=== PATIENT | female | born 1935 | race Caucasian/White ===

== ENCOUNTER 2018-06-16 09:51 | Emergency (ER) | payer MEDICARE, OTHER ==
[2018-06-16 10:36] LABS: #Basophils 0.1 thou/uL (0.0-0.2); #Eosinphils 0.2 thou/uL (0.0-0.7); #Lymphocytes 2.2 thou/uL (1.20-3.40); #Monocytes 1.5 thou/uL (0.11-0.59); #Neutrophils 7.2 thou/uL (1.40-6.50); %Basophils 0.6 % (0.0-1.0); %Eosinophils 1.7 % (0.0-10.0); %Lymphocytes 19.7 % (21.0-51.0); %Monocytes 13.1 % (0.0-10.0); %Neutrophils 64.8 % (42.0-75.0); Hemoglobin 15.7 g/dL (12.0-16.0); Mean Corpuscular HGB CONC 33.1 g/dL (32.0-36.0); Mean Corpuscular Hemoglobin 30.2 pg (27.0-31.0); Mean Corpuscular Volume 91.2 fL (78.0-98.0); Mean Platelet Volume 7.9 fL (7.4-10.4); Platelet Count 378 thou/uL (130-400); Red Blood Cell (RBC) Count 5.21 mill/uL (4.20-5.40); White Blood Cell (WBC) Count 11.2 thou/uL (4.8-10.8)
--- NOTE | 2018-06-16 10:44 | RAD ---
SINGLE VIEW CHEST: Date: 06/16/18 COMPARISON: None. HISTORY: Fullness in the neck and irregular heartbeat since yesterday. FINDINGS: Single view of the chest shows an enlarged cardiomediastinal silhouette with atherosclerotic calcific ations in the aorta. There is no evidence of consolidation, mass, or pleural effusion. IMPRESSION: No evidence of acute cardiopulmonary disease. POS: [facility]
[2018-06-16 10:59] LABS: ALT (SGPT) 14 U/L (8-55); AST (SGOT) 20 U/L (5-34); Albumin 3.9 g/dL (3.4-4.8); Alkaline Phosphatase 111 U/L (40-150); Anion Gap 13 mmol/L (10-20); BUN (Urea Nitrogen) 20 mg/dL (9.8-20.1); Bilirubin, Total 0.4 mg/dL (0.2-1.2); CK (CPK) 40 U/L (29-168); Calc. Creatinine Clearance 0 mL/min (70-130); Calcium 10.4 mg/dL (7.8-10.44); Carbon Dioxide 28 mmol/L (23-31); Chloride 100 mmol/L (98-107); Estimated GFR-MDRD 54; Globulin 4.5 g/dL (2.4-3.5); Glucose 93 mg/dL (83-110); Potassium 4.5 mmol/L (3.5-5.1); Protein, Total 8.4 g/dL (6.0-8.3); Sodium 136 mmol/L (136-145)
--- NOTE | 2018-06-19 13:33 | EKG ---
Test Reason : CHEST PRESSURE Blood Pressure : / mmHG Vent. Rate : 108 BPM Atrial Rate : 100 BPM P-R Int : 000 ms QRS Dur : 074 ms QT Int : 338 ms P-R-T Axes : 000 015 043 degrees QTc Int : 452 ms Atrial fibrillation with rapid ventricular response Cannot rule out Anterior infarct , age undetermined Abnormal ECG Confirmed by AMPARO BRANDON, DELMAR ([id number]), news videotape editor BRITTANY YEE ([id number]) on 06/19/2018 1:32:53 PM Referred By: Confirmed By:DELMAR CHRISTENSEN MD
== END 2018-06-16 12:02 | disposition home or self-care (01) ==
LOC: ERS 09:51
DX: I48.91 Unspecified atrial fibrillation (principal); E03.9 Hypothyroidism, unspecified; Z79.82 Long term (current) use of aspirin; Z79.899 Other long term (current) drug therapy
CPT/HCPCS: 71045; 80053; 82550; 84484; 85025; 93005; 96360; 96361

== ENCOUNTER 2018-11-12 12:18 | Emergency (ER) | payer MEDICARE ==
[~2018-11-12 12:18] MED LIST: ISOVUE-370 76%-LOCM 1 ML ONE
[2018-11-12 12:42] LABS: #Basophils 0.1 thou/uL (0.0-0.2); #Eosinphils 0.4 thou/uL (0.0-0.7); #Lymphocytes 2.2 thou/uL (1.20-3.40); #Monocytes 0.9 thou/uL (0.11-0.59); %Basophils 0.8 % (0.0-1.0); %Eosinophils 3.8 % (0.0-10.0); %Lymphocytes 23.2 % (21.0-51.0); %Monocytes 9.7 % (0.0-10.0); %Neutrophils 62.4 % (42.0-75.0); Hemoglobin 14.2 g/dL (12.0-16.0); Mean Corpuscular HGB CONC 32.4 g/dL (32.0-36.0); Mean Corpuscular Hemoglobin 29.7 pg (27.0-31.0); Mean Corpuscular Volume 91.7 fL (78.0-98.0); Mean Platelet Volume 7.4 fL (7.4-10.4); Platelet Count 338 thou/uL (130-400); RBC Distribution Width 12.1 % (11.5-14.5); Red Blood Cell (RBC) Count 4.79 mill/uL (4.20-5.40); White Blood Cell (WBC) Count 9.7 thou/uL (4.8-10.8)
--- NOTE | 2018-11-12 12:59 | RAD ---
EXAM: Chest PA and lateral: HISTORY: Chest pain. Tachycardia. COMPARISON: 06/16/2018 FINDINGS: Heart: Cardiomegaly. Aorta: Atherosclerosis Pulmonary vessels: Normal. However, there appears to be a right hilar mass measuring 2.5 cm. Costophrenic angles: Costophrenic angles are clear. Lungs: No consolidation with air bronchograms Pneumothorax: No pneumothorax Osseous structures: No osseous abnormalities IMPRESSION: 1. Right hilar mass, incompletely evaluated. 2. Further evaluation with chest CT is recommended. CODE T
[2018-11-12 13:00] LABS: ALT (SGPT) 23 U/L (8-55); AST (SGOT) 26 U/L (5-34); Albumin 3.8 g/dL (3.4-4.8); Alkaline Phosphatase 106 U/L (40-150); Anion Gap 11 mmol/L (10-20); BUN (Urea Nitrogen) 14 mg/dL (9.8-20.1); Bilirubin, Total 0.4 mg/dL (0.2-1.2); CK (CPK) 40 U/L (29-168); Calc. Creatinine Clearance 0 mL/min (70-130); Calcium 10.3 mg/dL (7.8-10.44); Carbon Dioxide 31 mmol/L (23-31); Chloride 103 mmol/L (98-107); Estimated GFR-MDRD 65; Globulin 3.7 g/dL (2.4-3.5); Glucose 103 mg/dL (83-110); Potassium 4.5 mmol/L (3.5-5.1); Protein, Total 7.5 g/dL (6.0-8.3); Sodium 140 mmol/L (136-145)
--- NOTE | 2018-11-12 15:37 | CT ---
EXAM: CT Chest W Con PROVIDED CLINICAL HISTORY: Right hilar mass seen on chest x-ray. Chest pain. Heart palpitations. COMPARISON: Chest x-ray on 11/12/2018 FINDINGS: There are scattered areas of linear atelectasis and/or scarring within the lungs bilaterally. No disc rete pulmonary nodule, mass, or pleural effusion is seen The suggested hilar mass on recent chest x-ray is reflective of prominent right hilar vascular struct ures. No hilar mass is visualized. There is no evidence of lymphadenopathy. Vascular calcifications are seen in the thoracic aorta, but the thoracic aorta is normal in caliber w ithout evidence of an aortic dissection. The heart is in enlarged. Multilevel degenerative changes are seen in the spine. IMPRESSION: 1. No acute findings seen in the chest. 2. Mild cardiomegaly. 3. The questioned mass in the right hilar region on chest x-ray is related to right hilar vascular st ructures, and there is no evidence of a right hilar mass.
== END 2018-11-12 16:32 | disposition home or self-care (01) ==
LOC: ERS 12:18
DX: R00.2 Palpitations (principal); I49.9 Cardiac arrhythmia, unspecified; E03.9 Hypothyroidism, unspecified; Z79.899 Other long term (current) drug therapy; Z79.82 Long term (current) use of aspirin
CPT/HCPCS: 36415; 71046; 71260; 80053; 82550; 84484; 85025; 93005; Q9966

== ENCOUNTER 2019-06-07 18:07 | Inpatient (IN) | payer MEDICARE ==
[2019-06-07] MEDS ORDERED: Adenosine 6 MG/2 ML VIAL ONE (18:12)
--- NOTE | 2019-06-07 18:57 | RAD ---
Chest one view HISTORY: Chest pain. COMPARISON: 11/12/2018. FINDINGS: Cardiac silhouette is magnified and enlarged. Pulmonary vasculature now more engorged. Prom inence of the right hilum is similar in appearance to the prior study. No evidence of pneumothorax. Defibrillator patch overlies the right chest. IMPRESSION: Pulmonary vascular congestion.
[2019-06-07] MEDS ORDERED: Diltiazem 125 MG/25 ML ONE ×2 (19:11→19:15)
[2019-06-07 19:15] LABS: #Basophils 0.1 thou/uL (0.0-0.2); #Eosinphils 0.5 thou/uL (0.0-0.7); #Lymphocytes 2.6 thou/uL (1.20-3.40); #Monocytes 1.6 thou/uL (0.11-0.59); %Basophils 0.7 % (0.0-1.0); %Eosinophils 3.1 % (0.0-10.0); %Lymphocytes 17.6 % (21.0-51.0); %Neutrophils 67.7 % (42.0-75.0); Hemoglobin 10.8 g/dL (12.0-16.0); Mean Corpuscular HGB CONC 32.3 g/dL (32.0-36.0); Mean Corpuscular Hemoglobin 29.3 pg (27.0-31.0); Mean Corpuscular Volume 90.5 fL (78.0-98.0); Mean Platelet Volume 6.1 fL (7.4-10.4); Platelet Count 672 thou/uL (130-400); RBC Distribution Width 13.1 % (11.5-14.5); Red Blood Cell (RBC) Count 3.68 mill/uL (4.20-5.40); White Blood Cell (WBC) Count 14.8 thou/uL (4.8-10.8)
[2019-06-07 19:37] LABS: Bilirubin Negative (Negative); Blood, Urine Negative (Negative); Clarity Clear (Clear); Glucose, Urine (Dipstick) Normal (Negative); Leukocyte 25 Leu/uL (Negative); Nitrite Negative (Negative); Protein, Urine (Dipstick) Negative (Neg-Trace); RBC/HPF 0-3 HPF (0-3); Squamous Epithelial None Seen HPF (0-3); Urobilinogen Normal mg/dL (Less than 2)
[2019-06-07 19:38] LABS: Bacteria/HPF 1+ HPF (None Seen)
[2019-06-07 19:41] LABS: ALT (SGPT) 35 U/L (8-55); AST (SGOT) 27 U/L (5-34); Acetaminophen Less than 6.0 mcg/mL (10.0-30.0); Albumin 3.1 g/dL (3.4-4.8); Alcohol Less than 10 mg/dL (Less than 10); Alkaline Phosphatase 167 U/L (40-110); Anion Gap 12 mmol/L (10-20); BUN (Urea Nitrogen) 16 mg/dL (9.8-20.1); Bilirubin, Total 0.2 mg/dL (0.2-1.2); CK (CPK) 16 U/L (29-168); Calc. Creatinine Clearance 0 mL/min (70-130); Calcium 9.4 mg/dL (7.8-10.44); Carbon Dioxide 24 mmol/L (23-31); Chloride 104 mmol/L (98-107); Estimated GFR-MDRD 73; Globulin 4.5 g/dL (2.4-3.5); Glucose 104 mg/dL (83-110); Potassium 3.9 mmol/L (3.5-5.1); Protein, Total 7.6 g/dL (6.0-8.3); Salicylate Less than 8.0 mg/dL (15.0-30.0); Sodium 136 mmol/L (136-145)
[2019-06-07 19:47] LABS: Amphetamine Not Detected (NotDetected); Barbiturates Screen Not Detected (NotDetected); Benzodiazepine Screen Not Detected (NotDetected); Cocaine Metabolite Screen Not Detected (NotDetected); Medtox Control Line Valid? VALID (VALID); Medtox Reader # READER 4; Methadone Not Detected (NotDetected); Methamphetamine Not Detected (NotDetected); Opiate Screen Not Detected (NotDetected); Oxycodone Screen Not Detected (NotDetected); Phencyclidine (PCP) Not Detected (NotDetected); THC/Cannabinoid Screen Not Detected (NotDetected); Tricyclic Screen Not Detected (NotDetected)
[2019-06-07] MEDS ORDERED: Morphine 2 MG/ML SYRINGE SLOW IVP PRN (22:09)
[2019-06-07] MEDS ORDERED: Ondansetron PF 4 MG/2 ML Vial IVP PRN (22:09)
[2019-06-07] MEDS ORDERED: Promethazine HCl 12.5 MG in Sodium Chloride 0.9% 50 ML IVPB PRN (22:09)
[2019-06-07] MEDS ORDERED: hydrALAZINE 20 MG/ML VIAL SLOW IVP PRN (22:09)
[2019-06-07] MEDS ORDERED: cloNIDine 0.1 MG TAB PO PRN (22:09)
[2019-06-07] MEDS ORDERED: HYDROcodone/Acetaminophen 5/325 mg Tablet PO PRN (22:11)
[2019-06-07] MEDS ORDERED: Bisacodyl 10 MG SUPP PR PRN (22:11)
[2019-06-07] MEDS ORDERED: Acetaminophen 325 MG TAB PO PRN (22:11)
[2019-06-07] MEDS ORDERED: Bisacodyl 5 MG TAB PO PRN (22:11)
--- NOTE | 2019-06-07 22:14 | PDOC.HHP ---
Hospitalist HPI - History of Present Illness palpitations History of Present Illness: patient is an 83 year old female with PMH HTN, hypothyroidism, SVT/afib who presents for palpitations, lasted 2 minutes and resolved on own. went to ED, here rate was observed to be about 205, ED Dr tried vagal maneuvers which didnt solve problem. She recieved cardizem bolus and gtt and recommended for admission. rate recovered to 130-150 on my arrival with resolution of symptoms PAtient takes metoprolol at home, patient believes that this is all due to PCP increasing synthroid from 125 to 150 3 weeks ago, although TSH and free T4 in ED wnl, she has been taking the 125 anyway for last few days despite advice to start the 150mcg dose. She reports HR normally controlled on metoprolol. patient reportedly admitted this month for fall with concussion, was diagnosed with UTI and completing course of keflex Hospitalist ROS - Review of Systems Constitutional: denies: fever, chills Eyes: denies: pain, vision change ENT: denies: nose discharge, throat pain Respiratory: denies: cough, shortness of breath Cardiovascular: reports: palpitations. denies: chest pain Gastrointestinal: denies: nausea, vomiting Genitourinary: denies: dysuria, frequency Musculoskeletal: denies: neck pain, shoulder pain Neurological: denies: weakness, numbness All other systems reviewed; all pertinent +/- noted in HPI/Subj Hospitalist History - Past Medical History Other Medical History: HTN, afib, SVT, hypothyroidism - Past Surgical History Past Surgical History: reports: no pertinent history Other Surgical History: reviewed - Social History Alcohol: reports: None Drugs: reports: none - Exam General Appearance: NAD, awake alert Eye: PERRL, anicteric sclera ENT: normocephalic atraumatic, no oropharyngeal lesions, moist mucosa Neck: supple, symmetric, no JVD, no thyromegaly, no lymphadenopathy, no carotid bruit Heart: RRR, no murmur, no gallops, no rubs, normal peripheral pulses Respiratory: CTAB, no wheezes, no rales, no ronchi, normal chest expansion, no tachypnea, normal percussion Gastrointestinal: soft, non-tender, non-distended, normal bowel sounds, no palpable masses, no hepatomegaly, no splenomegaly, no bruit Extremities: no cyanosis, no clubbing, no edema Skin: normal turgor, no lesions, no rashes Neurological: cranial nerve grossly intact, normal sensation to touch, no weakness, no focal deficits, no new deficit Musculoskeletal: normal tone, normal strength, no muscle wasting Hospitalist Results - Labs Result Diagrams: 06/08/19 04:17 06/08/19 04:17 Lab results: WBC 14.8 thou/uL (4.8-10.8) H 06/07/19 18:53 Hgb 10.8 g/dL (12.0-16.0) L 06/07/19 18:53 Hct 33.3 % (36.0-47.0) L 06/07/19 18:53 MCV 90.5 fL (78.0-98.0) 06/07/19 18:53 Plt Count 672 thou/uL (130-400) H 06/07/19 18:53 Neutrophils % 67.7 % (42.0-75.0) 06/07/19 18:53 Sodium 136 mmol/L (136-145) 06/07/19 18:53 Potassium 3.9 mmol/L (3.5-5.1) 06/07/19 18:53 Chloride 104 mmol/L (98-107) 06/07/19 18:53 Carbon Dioxide 24 mmol/L (23-31) 06/07/19 18:53 BUN 16 mg/dL (9.8-20.1) 06/07/19 18:53 Creatinine 0.76 mg/dL (0.6-1.1) 06/07/19 18:53 Glucose 104 mg/dL (83-110) 06/07/19 18:53 Calcium 9.4 mg/dL (7.8-10.44) 06/07/19 18:53 Total Bilirubin 0.2 mg/dL (0.2-1.2) 06/07/19 18:53 AST 27 U/L (5-34) 06/07/19 18:53 ALT 35 U/L (8-55) 06/07/19 18:53 Alkaline Phosphatase 167 U/L (40-110) H 06/07/19 18:53 Creatine Kinase 16 U/L (29-168) L 06/07/19 18:53 Troponin I 0.017 ng/mL (< 0.028) 06/07/19 18:37 B-Natriuretic Peptide 169.0 pg/mL (0-100) H 06/07/19 18:53 Serum Total Protein 7.6 g/dL (6.0-8.3) 06/07/19 18:53 Albumin 3.1 g/dL (3.4-4.8) L 06/07/19 18:53 Urine Ketones Negative mg/dL (Negative) 06/07/19 19:22 Urine Blood Negative (Negative) 06/07/19 19:22 Urine Nitrite Negative (Negative) 06/07/19 19:22 Ur Leukocyte Esterase 25 Faviola/uL (Negative) 06/07/19 19:22 Urine RBC 0-3 HPF (0-3) 06/07/19 19:22 Urine WBC 4-6 HPF (0-3) A 06/07/19 19:22 Ur Squamous Epith Cells None Seen HPF (0-3) 06/07/19 19:22 Urine Bacteria 1+ HPF (None Seen) A 06/07/19 19:22 Hospitalist H&P A/P - Plan Plan: patient is an 83 year old female with PMH HTN, hypothyroidism, SVT/afib who presents for: # symptomatic tachyarrhythmia - SVT possibly, admit to IMCU - consult cardiology, pulmonology, PT, OT - continue amiodarone, resume home meds when med rec complete
[2019-06-07] MEDS ORDERED: Furosemide 20 MG/2 ML VIAL SLOW IVP SCH (22:15)
[2019-06-07] MEDS ORDERED: Diltiazem 125 MG in Sodium Chloride 0.9% 100 ML IVPB SCH (22:15)
[2019-06-07 23:22] VITALS: BMI 25.4
[2019-06-07 23:32] LABS: Troponin I Less than 0.010 ng/mL (< 0.028)
[2019-06-08 01:40] LABS: Troponin I Less than 0.010 ng/mL (< 0.028)
[2019-06-08 04:45] LABS: #Basophils 0.1 thou/uL (0.0-0.2); #Eosinphils 0.3 thou/uL (0.0-0.7); #Lymphocytes 2.2 thou/uL (1.20-3.40); #Monocytes 1.3 thou/uL (0.11-0.59); #Neutrophils 10.3 thou/uL (1.40-6.50); %Basophils 0.5 % (0.0-1.0); %Eosinophils 2.2 % (0.0-10.0); %Lymphocytes 15.6 % (21.0-51.0); %Monocytes 9.2 % (0.0-10.0); %Neutrophils 72.6 % (42.0-75.0); Hemoglobin 10.2 g/dL (12.0-16.0); Mean Corpuscular HGB CONC 32.6 g/dL (32.0-36.0); Mean Corpuscular Hemoglobin 29.1 pg (27.0-31.0); Mean Corpuscular Volume 89.2 fL (78.0-98.0); Mean Platelet Volume 6.2 fL (7.4-10.4); Platelet Count 596 thou/uL (130-400); RBC Distribution Width 13.1 % (11.5-14.5); White Blood Cell (WBC) Count 14.2 thou/uL (4.8-10.8)
[2019-06-08 05:12] LABS: Anion Gap 11 mmol/L (10-20); BUN (Urea Nitrogen) 12 mg/dL (9.8-20.1); Calc. Creatinine Clearance 68 mL/min (70-130); Calcium 9.3 mg/dL (7.8-10.44); Carbon Dioxide 27 mmol/L (23-31); Chloride 104 mmol/L (98-107); Estimated GFR-MDRD 80; Glucose 100 mg/dL (83-110); Sodium 138 mmol/L (136-145)
[2019-06-08 05:31] LABS: Free T4 (Free Thyroxine) 0.99 ng/dL (0.70-1.48); Thyroid Stimulating Hormone 1.9464 uIU/mL (0.35-4.94)
[2019-06-08] MEDS: Levothyroxine Sodium 125 MCG TAB PO SCH (05:41)
[2019-06-08] MEDS ORDERED: Furosemide 20 MG/2 ML VIAL SLOW IVP SCH (06:00)
[2019-06-08] MEDS ORDERED: Metoprolol Tartrate 5 MG/5 ML VIAL ONE (08:31)
[2019-06-08] MEDS ORDERED: Amiodarone 150 MG, Admixture Fee 1 EACH in Dextrose 5% in Water 100 ML IVPB SCH (08:45)
[2019-06-08] MEDS ORDERED: Metoprolol Tartrate 5 MG/5 ML VIAL IVP SCH (08:45)
[2019-06-08] MEDS ORDERED: Enoxaparin Sodium 40 MG/0.4 ML SYRINGE SC SCH ×2 (09:00)
--- NOTE | 2019-06-08 09:25 | CON ---
DATE OF CONSULTATION: 06/08/2019 REASON FOR CONSULTATION: Severe tachycardia. HISTORY OF PRESENT ILLNESS: Ms. Patel is an 83-year-old woman. She has history of paroxysmal atrial fibrillation. Recently, she has been having intermittent sensation of feeling like she is going to faint and a sensation of pressure in her chest. These come and go. They are not exertional. She does have a history of atrial fibrillation. While she has been here, she has had atrial arrhythmias. Fibrillation rate in the high 180s and some narrow complex tachycardia in the rate of 200. When I was talking to her, she had a feeling she was going to faint. She was in atrial fibrillation with rate of 180, it made her chest feel tight, now the rate is down to 100. She is feeling better. PAST HISTORY: Also, 1. Hypothyroidism, on thyroid repletion. 2. Mild hypertension. SOCIAL HISTORY: No alcohol or tobacco. REVIEW OF SYSTEMS: CONSTITUTIONAL: No significant weight gain or loss. VISION: No changes. HEARING: No changes. PULMONARY: No cough or wheezing. GASTROINTESTINAL: No nausea, vomiting, or diarrhea. SKIN: No rashes. NEUROLOGIC: No unilateral weakness or numbness. PSYCHIATRIC: No unusual depression or anxiety. HEMATOLOGIC: No unusual bruising. GENITOURINARY: No burning with urination. PHYSICAL EXAMINATION: GENERAL: This is a pleasant elderly woman. She feels better when her heart rate control as outlined above. When her heart rate is very fast, she feels like she is going to faint and feels pressure in her chest. HEENT: Eyes, sclerae are nonicteric. Mouth; mucous membranes are moist. NECK: Supple. No lymphadenopathy. LUNGS: Clear. CARDIAC: She is very tachycardic and irregular. ABDOMEN: Soft and nontender. EXTREMITIES: Warm and dry. No clubbing. No cyanosis or edema. DIAGNOSTIC DATA: EKG, intermittent sinus tachycardia, some atrial fibrillation with a rapid rate, some narrow complex tachycardia, rate of 200. It could be AFib that looks more regular when it is very rapid, also could be atrial flutter or SVT. ASSESSMENT: 1. Paroxysmal atrial fibrillation with a very rapid rate. 2. Sensation of near fainting associated with these tachycardia. 3. Also, a narrow complex more regular tachycardia, which could be atrial flutter, it could also be atrial fibrillation, looks more regular as it gets more rapid. She does not tolerate these very rapid rates well at all. PLAN: 1. Start intravenous amiodarone. 2. Continue beta-blockers. 3. Thyroid tests are normal. 4. Anticoagulation. She was previously on Eliquis. We will change to Lovenox here. 5. Depending on the rhythm, may need ablation, especially if she has atrial flutter. We will see how she responds to the amiodarone. Also have electrophysiologic consultation during this admission. Job ID: [id number]
[2019-06-08] MEDS: Enoxaparin Sodium 80 MG/0.8 ML SYRINGE SC SCH ×2 (09:34→19:56)
[2019-06-08] MEDS: Senokot S 8.6-50 MG TAB PO SCH ×2 (09:36→19:57)
[2019-06-08] MEDS: Metoprolol Tartrate 50 MG TAB PO SCH ×2 (09:36→19:57)
[2019-06-08] MEDS: Amiodarone 450 MG in Dextrose 5% in Water 250 ML IVPB SCH ×2 (10:08→19:53)
--- NOTE | 2019-06-08 18:37 | CON ---
DATE OF CONSULTATION: 06/08/2019 SERVICE: Pulmonary Medicine. REASON FOR CONSULTATION: [facility] patient. HISTORY OF PRESENT ILLNESS: The patient is an 83-year-old white female with past medical history significant for essentially nothing. For the past month and a half, she has had intermittent episodes of palpitations, and shortness of breath. She also has presyncopal symptoms. She has been evaluated by her primary care physician and emergency physicians. Ultimately, she had an episode of syncope. She was brought to the Emergency Department and once again found to be in a tachyarrhythmia. She was placed on rate control medication. Since then, she has not had any shortness of breath, or episodes of tachycardia. She did have one run that was quite elevated, but asymptomatic. She denies any current fevers, chills, nausea , or vomiting and is otherwise in her usual state of health. She indicates that she has been having intermittent shortness of breath. It has been slowly progressive ever since a week after her thyroid medication was increased. PAST MEDICAL HISTORY: 1. Hypertension. 2. Atrial fibrillation, paroxysmal. 3. Hypothyroidism. 4. SVT. PAST SURGICAL HISTORY: None. ALLERGIES: NO KNOWN DRUG ALLERGIES. MEDICATIONS: List of the patient's inpatient medications were reviewed. No specific updates were made at this time. FAMILY HISTORY: Noncontributory. SOCIAL HISTORY: Negative for alcohol, tobacco, or illicit drug use currently. She has no exposure to chemicals, dust, asbestos, or tuberculosis. She notes that she is a lifelong nonsmoker. REVIEW OF SYSTEMS: General, head, ears, eyes, nose, throat, cardiovascular, respiratory, GI, , musculoskeletal, neurologic, and skin are negative except as mentioned in the HPI PHYSICAL EXAMINATION: VITAL SIGNS: Afebrile, pulse 82, blood pressure 124/67, respirations 16, and saturation 96%, currently on room air. GENERAL: The patient is awake and alert, in no apparent distress. LUNGS: Wonderful air entry. Minimal dependent crackles are noted. No prolonged expiratory phase or wheezing is appreciated. HEART: Normal rate. Regular. ABDOMEN: Soft, nontender, and nondistended. Bowel sounds are positive. MUSCULOSKELETAL: No cyanosis or clubbing. No pitting in the bilateral lower extremities. NEUROLOGIC: Grossly nonfocal. LABORATORY DATA: WBC 14.2, hemoglobin 10.2, and platelets 596,000. Basic metabolic profile is unremarkable. Troponin negative x3 and BNP 169. TSH 1.6. T4 falls within the normal limits. Liver function studies are essentially unremarkable except for a slightly elevated alkaline phosphatase of 167. Urinalysis is unremarkable. Urine drug screen is negative. IMAGIN. Chest x-ray demonstrates no acute cardiopulmonary abnormality. 2. Minimal pulmonary vascular congestion/cephalization is present. I do not see any obvious infiltrates, or effusions present. Cardiac silhouette is quite enlarged. The carinal angle is generous, consistent with left atrial dilation. ASSESSMENT: 1. Atrial fibrillation with rapid ventricular response. 2. Syncope/presyncope. 3. Possible atrial flutter versus supraventricular tachycardia. DISCUSSION AND PLAN: EP consultation is currently pending. We will keep the patient in the IMCU for 1 night. If she is doing well, she can be considered for transition to the telemetry unit in the morning. Pulmonary will continue to follow in this location. At this point, she is stable from respiratory standpoint. A single dose of Lasix will be considered. 70 minutes have been devoted to this patient in various activities. I personally reviewed all imaging studies and laboratory data noted within this document. For fifty percent of this time, I was interacting with the patient at the bedside or coordinating care with the care team. For the remainder of the time I was immediately available to the patient in the hospital unit. Job ID: [id number] [facility]ITAL[facility]
[2019-06-09 04:05] LABS: #Basophils 0.1 thou/uL (0.0-0.2); #Eosinphils 0.5 thou/uL (0.0-0.7); #Lymphocytes 2.6 thou/uL (1.20-3.40); #Monocytes 1.7 thou/uL (0.11-0.59); %Basophils 0.8 % (0.0-1.0); %Eosinophils 3.2 % (0.0-10.0); %Lymphocytes 17.3 % (21.0-51.0); %Monocytes 11.3 % (0.0-10.0); %Neutrophils 67.5 % (42.0-75.0); Hemoglobin 10.8 g/dL (12.0-16.0); Mean Corpuscular HGB CONC 32.8 g/dL (32.0-36.0); Mean Corpuscular Hemoglobin 29.3 pg (27.0-31.0); Mean Corpuscular Volume 89.2 fL (78.0-98.0); Mean Platelet Volume 6.5 fL (7.4-10.4); Platelet Count 605 thou/uL (130-400); RBC Distribution Width 13.2 % (11.5-14.5); Red Blood Cell (RBC) Count 3.68 mill/uL (4.20-5.40); White Blood Cell (WBC) Count 14.8 thou/uL (4.8-10.8)
[2019-06-09 04:23] LABS: Anion Gap 11 mmol/L (10-20); BUN (Urea Nitrogen) 11 mg/dL (9.8-20.1); Calc. Creatinine Clearance 61 mL/min (70-130); Calcium 9.7 mg/dL (7.8-10.44); Carbon Dioxide 27 mmol/L (23-31); Chloride 101 mmol/L (98-107); Estimated GFR-MDRD 71; Glucose 109 mg/dL (83-110); Potassium 3.9 mmol/L (3.5-5.1); Sodium 135 mmol/L (136-145)
[2019-06-09] MEDS: Levothyroxine Sodium 125 MCG TAB PO SCH (06:27)
--- NOTE | 2019-06-09 09:23 | PRG ---
DATE OF SERVICE: 06/09/2019 SUBJECTIVE: Ms. Patel feels much better today. The atrial fibrillation has resolved. She is not having any further tachycardia. She tolerated the intravenous amiodarone very well. No chest pain or pressure. OBJECTIVE: VITAL SIGNS: Blood pressure 155/74, pulse 80 and it is sinus with occasional PAC. LUNGS: Clear. CARDIAC: Normal S1, normal S2. ABDOMEN: Soft, nontender. ASSESSMENT: 1. Atrial arrhythmias, dramatically improved. 2. Mild hypertension. 3. Narrow complex tachycardia, looks like supraventricular tachycardia at a rate of 200, but could have been atrial fibrillation going very rapidly. PLAN: 1. Continue amiodarone, change to oral. 2. Give some extra potassium. 3. Okay to go to telemetry. Job ID: [id number]
[2019-06-09] MEDS: Metoprolol Tartrate 50 MG TAB PO SCH ×2 (10:23→20:25)
[2019-06-09] MEDS: Senokot S 8.6-50 MG TAB PO SCH ×2 (10:24→20:26)
[2019-06-09] MEDS: Amiodarone 200 MG TAB PO SCH ×3 (10:25→20:25)
[2019-06-09] MEDS: Enoxaparin Sodium 80 MG/0.8 ML SYRINGE SC SCH ×2 (10:26→20:26)
[2019-06-09] MEDS ORDERED: Potassium Chloride 20 MEQ TAB PO SCH (12:00)
--- NOTE | 2019-06-09 12:22 | PDOC.HOSPP ---
- Subjective Encounter Date: 06/08/19 Encounter Time: 11:30 Subjective: pt up in bed no complains - Objective Vital Signs & Weight: Vital Signs (12 hours) Temp 06/09/19 10:39 96.8 F L 06/09/19 04:20 98.7 F Weight Admit Weight 153 lb Weight 153 lb Most Recent Monitor Data Heart Rate from ECG 89 NIBP 162/87 NIBP BP-Mean 112 Respiration from ECG 19 SpO2 96 I&O: 06/08/19 06/09/19 06/10/19 06:59 06:59 06:59 Intake Total 567 2525 Output Total 1325 2050 Balance -548 475 Result Diagrams: 06/09/19 03:42 06/09/19 03:42 Hospitalist ROS - Review of Systems Respiratory: denies: cough, dry, shortness of breath, hemoptysis, SOB with excertion, pleuritic pain, sputum, wheezing, other Cardiovascular: denies: chest pain, palpitations, orthopnea, paroxysmal noc. dyspnea, edema, light headedness, other Gastrointestinal: denies: nausea, vomiting, abdominal pain, diarrhea, constipation, melena, hematochezia, other - Medication Medications: Active Medications Generic Name Dose Route Start Last Admin Trade Name Freq PRN Reason Stop Dose Admin Acetaminophen 650 mg 06/07/19 22:11 06/07/19 23:35 Tylenol PO 650 mg Q4H PRN Administration Headache/Fever/Mild Pain (1-3) Amiodarone HCl 400 mg 06/09/19 09:00 06/09/19 10:25 Cordarone PO 400 mg TID GRAYSON Administration Enoxaparin Sodium 70 mg 06/08/19 09:00 06/09/19 10:26 Lovenox SC 70 mg 0900,2100 GRAYSON Administration Levothyroxine Sodium 125 mcg 06/08/19 06:00 06/09/19 06:27 Synthroid PO 125 mcg 0600 GRAYSON Administration Metoprolol Tartrate 50 mg 06/08/19 09:00 06/09/19 10:23 Lopressor PO 50 mg BID GRAYSON Administration Pantoprazole Sodium 40 mg 06/08/19 09:00 06/09/19 10:24 Protonix PO 40 mg DAILY GRAYSON Administration Senna/Docusate Sodium 1 tab 06/08/19 09:00 06/09/19 10:24 Senokot S PO Not Given BID GRAYSON Sodium Chloride 10 ml 06/08/19 09:00 06/09/19 10:30 Flush - Normal Saline IVF 10 ml Q12HR GRAYSON Administration - Exam Heart: negative: RRR, no murmur, no gallops, no rubs, normal peripheral pulses, irregular, diminshed peripheral pulses, murmur present, II/IV, III/IV Respiratory: negative: CTAB, no wheezes, no rales, no ronchi, normal chest expansion, no tachypnea, normal percussion, rales, rhonchi, tachypneic, wheezes Gastrointestinal: negative: soft, non-tender, non-distended, normal bowel sounds , no palpable masses, no hepatomegaly, no splenomegaly, no bruit, no guarding, no rigidity, tender to palpation, distended, diminished bowl sounds, voluntary guarding Hosp A/P (1) Atrial fibrillation Code(s): I48.91 - UNSPECIFIED ATRIAL FIBRILLATION Status: Acute (2) HTN (hypertension) Code(s): I10 - ESSENTIAL (PRIMARY) HYPERTENSION Status: Acute (3) Hypothyroid Code(s): E03.9 - HYPOTHYROIDISM, UNSPECIFIED Status: Acute - Plan pt on amiodarone drip. will continue her home meds. EP to see pt if her heart rate is not controlled by amiodarone.
--- NOTE | 2019-06-09 14:18 | PRG ---
DATE OF SERVICE: 06/09/2019 SERVICE: Pulmonary Medicine. INTERVAL HISTORY: The patient is doing outstanding from a respiratory standpoint. Denies any current chest discomfort, nausea, vomiting, fevers, or chills. Otherwise, there has been no interval change to her condition. PHYSICAL EXAMINATION: VITAL SIGNS: Afebrile, pulse 75, blood pressure 120/55, respirations 16, saturation 95% on room air. GENERAL: The patient is awake and alert, in no apparent distress. LUNGS: Wonderful air entry with no prolonged expiratory phase or wheezing present. No dependent crackles are noted. HEART: Normal rate, regular. ABDOMEN: Soft, nontender, and nondistended. Bowel sounds are positive. MUSCULOSKELETAL: No cyanosis or clubbing. No pitting in the bilateral lower extremities. NEUROLOGIC: Grossly nonfocal. LABORATORY DATA: WBC 14.8, hemoglobin 10.8, platelets 605,000. Basic metabolic profile is completely unremarkable. Sodium has dropped a little bit. TSH 1.9. Free T4 falls within the normal limits. Magnesium 2.0. Urinalysis is unremarkable. Urine drug screen is negative. ASSESSMENT: 1. Atrial fibrillation with rapid ventricular response. 2. Syncope/presyncope, resolved. 3. Possible atrial flutter versus supraventricular tachycardia. DISCUSSION AND PLAN: The patient has done well on telemetry overnight. She can be transitioned out of the ICU to the telemetry unit. When she leaves the ICU, she will have no further requirements for inpatient Pulmonary/Critical Care opinion, and I will sign off. Please call with additional questions or concerns through time. Job ID: [id number]
--- NOTE | 2019-06-09 18:54 | PDOC.HOSPP ---
- Subjective Encounter Date: 06/09/19 Encounter Time: 11:00 Subjective: pt up in bed feels well. No tachycardia last night - Objective Vital Signs & Weight: Vital Signs (12 hours) Temp 06/09/19 15:20 98.4 F 06/09/19 10:39 96.8 F L Weight Admit Weight 153 lb Weight 153 lb Most Recent Monitor Data Heart Rate from ECG 75 NIBP 112/55 NIBP BP-Mean 74 Respiration from ECG 16 SpO2 95 I&O: 06/08/19 06/09/19 06/10/19 06:59 06:59 06:59 Intake Total 567 2525 Output Total 1325 2050 Balance -758 475 Result Diagrams: 06/09/19 03:42 06/09/19 03:42 Hospitalist ROS - Review of Systems Respiratory: denies: cough, dry, shortness of breath, hemoptysis, SOB with excertion, pleuritic pain, sputum, wheezing, other Cardiovascular: denies: chest pain, palpitations, orthopnea, paroxysmal noc. dyspnea, edema, light headedness, other Gastrointestinal: denies: nausea, vomiting, abdominal pain, diarrhea, constipation, melena, hematochezia, other - Medication Medications: Active Medications Generic Name Dose Route Start Last Admin Trade Name Freq PRN Reason Stop Dose Admin Acetaminophen 650 mg 06/07/19 22:11 06/07/19 23:35 Tylenol PO 650 mg Q4H PRN Administration Headache/Fever/Mild Pain (1-3) Amiodarone HCl 400 mg 06/09/19 09:00 06/09/19 15:18 Cordarone PO 400 mg TID GRAYSON Administration Enoxaparin Sodium 70 mg 06/08/19 09:00 06/09/19 10:26 Lovenox SC 70 mg 0900,2100 GRAYSON Administration Levothyroxine Sodium 125 mcg 06/08/19 06:00 06/09/19 06:27 Synthroid PO 125 mcg 0600 GRAYSON Administration Metoprolol Tartrate 50 mg 06/08/19 09:00 06/09/19 10:23 Lopressor PO 50 mg BID GRAYSON Administration Pantoprazole Sodium 40 mg 06/08/19 09:00 06/09/19 10:24 Protonix PO 40 mg DAILY GRAYSON Administration Senna/Docusate Sodium 1 tab 06/08/19 09:00 06/09/19 10:24 Senokot S PO Not Given BID GRAYSON Sodium Chloride 10 ml 06/08/19 09:00 06/09/19 10:30 Flush - Normal Saline IVF 10 ml Q12HR GRAYSON Administration - Exam Neck: negative: supple, symmetric, no JVD, no thyromegaly, no lymphadenopathy, no carotid bruit, JVD Heart: negative: RRR, no murmur, no gallops, no rubs, normal peripheral pulses, irregular, diminshed peripheral pulses, murmur present, II/IV, III/IV Respiratory: negative: CTAB, no wheezes, no rales, no ronchi, normal chest expansion, no tachypnea, normal percussion, rales, rhonchi, tachypneic, wheezes Hosp A/P (1) Atrial fibrillation Code(s): I48.91 - UNSPECIFIED ATRIAL FIBRILLATION Status: Acute (2) HTN (hypertension) Code(s): I10 - ESSENTIAL (PRIMARY) HYPERTENSION Status: Acute (3) Hypothyroid Code(s): E03.9 - HYPOTHYROIDISM, UNSPECIFIED Status: Acute - Plan pt on amiodarone drip. will continue her home meds. EP to see pt if her heart rate is not controlled by amiodarone. 06/09 will change AC to oral if no event tonight. possible discharge in am if ok with cardio. amiodarone changed to oral.
[2019-06-10 04:34] LABS: #Basophils 0.1 thou/uL (0.0-0.2); #Eosinphils 0.4 thou/uL (0.0-0.7); #Lymphocytes 2.3 thou/uL (1.20-3.40); #Monocytes 1.7 thou/uL (0.11-0.59); #Neutrophils 10.1 thou/uL (1.40-6.50); %Basophils 0.8 % (0.0-1.0); %Eosinophils 2.9 % (0.0-10.0); %Lymphocytes 15.8 % (21.0-51.0); %Monocytes 11.3 % (0.0-10.0); %Neutrophils 69.2 % (42.0-75.0); Hemoglobin 10.6 g/dL (12.0-16.0); Mean Corpuscular Hemoglobin 28.4 pg (27.0-31.0); Mean Corpuscular Volume 88.7 fL (78.0-98.0); Mean Platelet Volume 6.5 fL (7.4-10.4); Platelet Count 616 thou/uL (130-400); RBC Distribution Width 13.2 % (11.5-14.5); Red Blood Cell (RBC) Count 3.75 mill/uL (4.20-5.40); White Blood Cell (WBC) Count 14.6 thou/uL (4.8-10.8)
[2019-06-10 04:42] LABS: Anion Gap 12 mmol/L (10-20); BUN (Urea Nitrogen) 12 mg/dL (9.8-20.1); Calc. Creatinine Clearance 59 mL/min (70-130); Calcium 9.7 mg/dL (7.8-10.44); Carbon Dioxide 27 mmol/L (23-31); Chloride 99 mmol/L (98-107); Estimated GFR-MDRD 69; Glucose 101 mg/dL (83-110); Potassium 4.2 mmol/L (3.5-5.1); Sodium 134 mmol/L (136-145)
[2019-06-10] MEDS: Levothyroxine Sodium 125 MCG TAB PO SCH (05:35)
--- NOTE | 2019-06-10 09:21 | PRG ---
DATE OF SERVICE: 06/10/2019 SUBJECTIVE: Jorge is doing well. She had some hot flashes, but her heart rate was normal during that time. Otherwise, she is feeling well. She is up and around. No complaints. OBJECTIVE: VITAL SIGNS: Blood pressure 118/50, pulse is in the 70s and in the high 60s. LUNGS: Clear. CARDIAC: Normal S1. Normal S2. ABDOMEN: Soft. Nontender. ASSESSMENT: Atrial arrhythmias, markedly improved on amiodarone. Some of it was atrial fibrillation. Some of it looked possibly atrial tachycardia or some type of a narrow complex tachycardia, rate of 200. This is all dramatically improved. PLAN: 1. Changed to apixaban instead of Lovenox. 2. Continue loading with amiodarone. 3. Change to long-acting metoprolol. 4. Should be able to go home tomorrow if doing well. Job ID: [id number]
[2019-06-10] MEDS: Apixaban 5 MG TAB PO SCH ×2 (09:37→20:52)
[2019-06-10] MEDS: Metoprolol Tartrate 50 MG TAB PO SCH ×2 (09:37→20:52)
[2019-06-10] MEDS: Amiodarone 200 MG TAB PO SCH ×3 (09:37→20:51)
[2019-06-10] MEDS: Senokot S 8.6-50 MG TAB PO SCH ×2 (09:37→20:51)
[2019-06-10 14:31] VITALS: BP 113/66
--- NOTE | 2019-06-10 15:09 | PRG ---
DATE OF SERVICE: 06/10/2019 SERVICE: Pulmonary Medicine. INTERVAL HISTORY: The patient is doing fine from respiratory standpoint. She had one episode of a very brief tachyarrhythmia. This was briefly symptomatic. Otherwise, she is without events overnight. She has no complaints of chest discomfort, nausea, or vomiting. She does not have any residual shortness of breath. PHYSICAL EXAMINATION: VITAL SIGNS: Afebrile, pulse 72, blood pressure 113/66, respirations 14, and saturation 95% on room air. GENERAL: The patient is awake and alert, in no apparent distress. LUNGS: Wonderful air entry. There is no prolonged expiratory phase. Dependent crackles have resolved. There is no wheezing or rhonchi present. HEART: Normal rate. Regular. ABDOMEN: Soft, nontender, and nondistended. Bowel sounds are positive. MUSCULOSKELETAL: No cyanosis or clubbing. There is no pitting in the bilateral lower extremities. NEUROLOGIC: Grossly nonfocal. LABORATORY DATA: WBC 14.6, hemoglobin 10.6, platelets 616,000. Basic metabolic profile and magnesium are unremarkable. Urinalysis is negative. Urine drug screen is also unremarkable. ASSESSMENT: 1. Atrial fibrillation with rapid ventricular response. 2. Syncope/presyncope, resolved. 3. Atrial flutter versus supraventricular tachycardia. DISCUSSION AND PLAN: The patient remains stable for transition out of the ICU to the telemetry unit. Pulmonary will follow in this location, but when she is transitioned to the floor, she will have no further requirements per my opinion, and I will sign off. EP consultation is currently pending. She has returned to euvolemia and diuretic intervention will be interrupted. Job ID: [id number]
--- NOTE | 2019-06-10 18:59 | PDOC.HOSPP ---
- Subjective Encounter Date: 06/10/19 Encounter Time: 11:30 Subjective: pt up in bed feels well. Had some tachycardia earlier. - Objective Vital Signs & Weight: Vital Signs (12 hours) Temp Pulse Pulse BP BP Pulse Ox 06/10/19 13:09 72 76 113/66 126/63 06/10/19 10:20 98.5 F 06/10/19 07:15 95 Weight Admit Weight 153 lb Weight 148 lb 2 oz Most Recent Monitor Data Heart Rate from ECG 83 NIBP 126/63 NIBP BP-Mean 84 Respiration from ECG 23 SpO2 91 I&O: 06/09/19 06/10/19 06/11/19 06:59 06:59 06:59 Intake Total 2525 1250 600 Output Total 2050 1150 Balance 475 1250 -550 Result Diagrams: 06/10/19 03:58 06/10/19 03:58 Hospitalist ROS - Review of Systems Respiratory: denies: cough, dry, shortness of breath, hemoptysis, SOB with excertion, pleuritic pain, sputum, wheezing, other Cardiovascular: denies: chest pain, palpitations, orthopnea, paroxysmal noc. dyspnea, edema, light headedness, other Gastrointestinal: denies: nausea, vomiting, abdominal pain, diarrhea, constipation, melena, hematochezia, other - Medication Medications: Active Medications Generic Name Dose Route Start Last Admin Trade Name Freq PRN Reason Stop Dose Admin Acetaminophen 650 mg 06/07/19 22:11 06/07/19 23:35 Tylenol PO 650 mg Q4H PRN Administration Headache/Fever/Mild Pain (1-3) Amiodarone HCl 400 mg 06/09/19 09:00 06/10/19 15:37 Cordarone PO 400 mg TID GRAYSON Administration Apixaban 5 mg 06/10/19 09:00 06/10/19 09:37 Eliquis PO 5 mg BID GRAYSON Administration Levothyroxine Sodium 125 mcg 06/08/19 06:00 06/10/19 05:35 Synthroid PO 125 mcg 0600 GRAYSON Administration Metoprolol Tartrate 50 mg 06/08/19 09:00 06/10/19 09:37 Lopressor PO 50 mg BID GRAYSON Administration Pantoprazole Sodium 40 mg 06/08/19 09:00 06/10/19 09:37 Protonix PO 40 mg DAILY GRAYSON Administration Senna/Docusate Sodium 1 tab 06/08/19 09:00 06/10/19 09:37 Senokot S PO Not Given BID GRAYSON Sodium Chloride 10 ml 06/08/19 09:00 06/10/19 09:37 Flush - Normal Saline IVF 10 ml Q12HR GRAYSON Administration - Exam Neck: negative: supple, symmetric, no JVD, no thyromegaly, no lymphadenopathy, no carotid bruit, JVD Heart: negative: RRR, no murmur, no gallops, no rubs, normal peripheral pulses, irregular, diminshed peripheral pulses, murmur present, II/IV, III/IV Hosp A/P (1) Atrial fibrillation Code(s): I48.91 - UNSPECIFIED ATRIAL FIBRILLATION Status: Acute (2) HTN (hypertension) Code(s): I10 - ESSENTIAL (PRIMARY) HYPERTENSION Status: Acute (3) Hypothyroid Code(s): E03.9 - HYPOTHYROIDISM, UNSPECIFIED Status: Acute - Plan pt on amiodarone drip. will continue her home meds. EP to see pt if her heart rate is not controlled by amiodarone. 06/10 pt's meds changed to oral. will watch her for one more night if no events will discharge.
[2019-06-11] MEDS: Levothyroxine Sodium 125 MCG TAB PO SCH (05:53)
[2019-06-11] MEDS: Apixaban 5 MG TAB PO SCH (08:28)
[2019-06-11] MEDS: Amiodarone 200 MG TAB PO SCH (08:28)
[2019-06-11] MEDS: Senokot S 8.6-50 MG TAB PO SCH (08:29)
[2019-06-11] MEDS: Metoprolol Tartrate 50 MG TAB PO SCH (08:29)
[2019-06-11 08:59] VITALS: TEMP 97
--- NOTE | 2019-06-11 13:20 | PRG ---
DATE OF SERVICE: 06/11/2019 SUBJECTIVE: Ms. Patel is doing great. No complaints. No chest pain or pressure. The heart rhythm has been very steady with sinus rhythm. OBJECTIVE: VITAL SIGNS: Blood pressure 113/66, pulse is 70 and sinus. LUNGS: Clear. CARDIAC: Normal S1 and normal S2. ABDOMEN: Soft and nontender. EXTREMITIES: No edema. ASSESSMENT: 1. Paroxysmal atrial fibrillation with a rapid rate, resolved on amiodarone. 2. Supraventricular tachycardia, possibly atrial tachycardia, rate of over 200, resolved with amiodarone. PLAN: 1. Plan is to go on amiodarone 200 mg twice a day for 1 month and 200 mg once a day. 2. Eliquis 5 mg twice a day. 3. Lopressor 50 mg twice a day. 4. She will see us in office in a month. This was explained to her that it is possible to have pulmonary toxicity, very severe shortness of breath with amiodarone, also can affect thyroid levels. She understands that if she has difficulty breathing to call for attention. She understands at some point she will need thyroid levels rechecked. Job ID: [id number]
[2019-06-11] MEDS ORDERED: Amiodarone 200 MG TAB PO SCH (21:00)
== END 2019-06-11 14:55 | disposition home or self-care (01) | DRG 310 ==
LOC: ERS 18:07 → IMCU/EMU 22:38
PROVIDERS: ADMIT Internal Medicine; ATTEND Internal Medicine
DX: I47.1 Supraventricular tachycardia (principal); I10 Essential (primary) hypertension; E03.9 Hypothyroidism, unspecified; I48.0 Paroxysmal atrial fibrillation; I48.92 Unspecified atrial flutter; R55 Syncope and collapse
CPT/HCPCS: 36415; 71045; 80048; 80053; 80306; 80307; 81003; 81015; 82550; 83735; 83880; 84439; 84443; 84484; 85025; 93005; J0153; J0282; J1650; J1940; J7070

== ENCOUNTER 2019-08-31 14:13 | Emergency (ER) | payer MEDICARE ==
--- NOTE | 2019-08-31 15:25 | CT ---
CT HEAD WITHOUT CONTRAST: Date: 08/31/2019 INDICATION: Fall. Patient on blood thinner. FINDINGS: Ventricles have normal size and position. Mild chronic ischemic change. No hemorrhage. No infarct or mass. There is a benign cystic area in the left temporal lobe which is stable from the prior exam of 2011. Paranasal sinuses are clear. IMPRESSION: No acute abnormality. POS: TRACY
== END 2019-08-31 15:45 | disposition home or self-care (01) ==
LOC: ERS 14:13
DX: S00.31XA Abrasion of nose, initial encounter (principal); S00.511A Abrasion of lip, initial encounter; S00.81XA Abrasion of other part of head, initial encounter; I49.9 Cardiac arrhythmia, unspecified; I48.91 Unspecified atrial fibrillation; E03.9 Hypothyroidism, unspecified; I25.2 Old myocardial infarction; Z79.01 Long term (current) use of anticoagulants; Z79.899 Other long term (current) drug therapy; W19.XXXA Unspecified fall, initial encounter
CPT/HCPCS: 70450

== ENCOUNTER 2019-09-09 13:43 | Outpatient (CLI) | payer MEDICARE ==
--- NOTE | 2019-09-09 14:21 | RAD ---
XR Chest Pa Lat @ [facility] HISTORY: Cough COMPARISON: 06/07/2019 FINDINGS: Heart size enlarged. The aorta is tortuous. The lungs are expanded with chronic changes. No lobar consolidation, pneumothoraces, suzi pulmonary edema or pleural effusions are seen. IMPRESSION: No radiographic evidence of acute cardiopulmonary process.
== END 2019-09-09 13:44 | disposition home or self-care (01) ==
LOC: RAD 13:43
PROVIDERS: ATTEND Nurse Practitioner Family
DX: R05 Cough (principal)
CPT/HCPCS: 71046

== ENCOUNTER 2020-11-19 15:21 | Outpatient (CLI) | payer MEDICARE | END 2020-11-19 15:22 | disposition home or self-care (01) | LOC: SCSRAD 15:21 | PROVIDERS: ATTEND Student in an Organized Health Care Education/Training Program | DX: R05 Cough (principal) | CPT/HCPCS: 71046 ==

== ENCOUNTER 2022-04-25 04:16 | Observation (INO) | payer MEDICARE ==
[2022-04-25] MEDS ORDERED: Nitroglycerin 0.4 MG TAB (25 Tab Bottle) SL PRN (06:24)
[2022-04-25] MEDS ORDERED: Acetaminophen 650 MG Suppository PR PRN (08:05)
[2022-04-25] MEDS ORDERED: Ondansetron PF 4 MG/2 ML Vial IVP PRN (08:05)
[2022-04-25] MEDS ORDERED: Acetaminophen 325 MG TAB PO PRN (08:05)
[2022-04-25] MEDS ORDERED: Ondansetron ODT 4 MG TAB PO PRN (08:05)
[2022-04-25] MEDS ORDERED: Calcium Carbonate 500 MG ChewTAB PO PRN (08:07)
[2022-04-25 08:58] LABS: Troponin I Less than 0.010 ng/mL (< 0.028)
[2022-04-25] MEDS ORDERED: Apixaban 5 MG TAB PO SCH (09:00)
[2022-04-25] MEDS ORDERED: Levothyroxine Sodium 125 MCG TAB PO SCH (09:45)
[2022-04-25] MEDS: Furosemide 20 MG TAB PO SCH (09:52)
[2022-04-25] MEDS: Metoprolol Tartrate 50 MG TAB PO SCH ×2 (09:52→19:40)
[2022-04-25] MEDS: Aspirin Chewable 81 MG TAB PO SCH (09:52)
[2022-04-25 11:54] LABS: Troponin I Less than 0.010 ng/mL (< 0.028)
[2022-04-25 12:52] VITALS: BMI 25.7
[2022-04-25] MEDS: Naproxen 500 MG TAB PO SCH (19:40)
[2022-04-26 05:28] LABS: Anion Gap 10 mmol/L (10-20); BUN (Urea Nitrogen) 31 mg/dL (9.8-20.1); Calc. Creatinine Clearance 44 mL/min (70-130); Calcium 9.7 mg/dL (7.8-10.44); Carbon Dioxide 29 mmol/L (23-31); Cardiac Risk 3.3 (Less than 4.5); Chloride 101 mmol/L (98-107); Cholesterol 163 mg/dl (< 200 Desired); Estimated GFR 53; Glucose 94 mg/dL (83-110); HDL Cholesterol 49 mg/dL (>60 Neg Risk); LDL Cholesterol, Calculated 98 mg/dL; Potassium 3.9 mmol/L (3.5-5.1); Sodium 136 mmol/L (136-145); Triglycerides 81 mg/dL (Less than 150)
[2022-04-26] MEDS ORDERED: Levothyroxine Sodium 125 MCG TAB PO SCH (06:00)
[2022-04-26 06:26] LABS: Band 1 % (5-11); Eosinophils 4 % (0-10); Hemoglobin 14.5 g/dL (12.0-16.0); Lymphocytes 24 % (21-51); MDiff Complete? YES; Mean Corpuscular HGB CONC 33.1 g/dL (32.0-36.0); Mean Corpuscular Hemoglobin 30.8 pg (27.0-31.0); Mean Corpuscular Volume 93.2 fl (78.0-98.0); Mean Platelet Volume 7.8 fL (7.4-10.4); Monocytes 12 % (0-10); Myelocyte 1 % (0-0); Neutrophil 58 % (42-75); Platelet Count 311 thou/uL (130-400); RBC Distribution Width 12.6 % (11.5-14.5); Red Blood Cell (RBC) Count 4.72 mill/uL (4.20-5.40); White Blood Cell (WBC) Count 8.9 thou/uL (4.8-10.8)
[2022-04-26] MEDS ORDERED: Potassium Chloride 10 MEQ TAB PO SCH (09:00)
[2022-04-26] MEDS ORDERED: Amiodarone 200 MG TAB PO SCH (09:00)
[2022-04-26] MEDS: Furosemide 20 MG TAB PO SCH (10:17)
[2022-04-26] MEDS: Aspirin Chewable 81 MG TAB PO SCH (10:17)
[2022-04-26] MEDS: Naproxen 500 MG TAB PO SCH (10:18)
[2022-04-26] MEDS: Metoprolol Tartrate 50 MG TAB PO SCH (11:50)
[2022-04-26 11:53] VITALS: BP 138/74; TEMP 98.2
== END 2022-04-26 13:06 | disposition home or self-care (01) ==
LOC: 2SW 04:16
PROVIDERS: ADMIT Physician Assistant; ATTEND Physician Assistant
DX: R07.89 Other chest pain (principal); E78.5 Hyperlipidemia, unspecified; I48.0 Paroxysmal atrial fibrillation; E03.9 Hypothyroidism, unspecified; I25.10 Atherosclerotic heart disease of native coronary artery without angina pectoris; I25.2 Old myocardial infarction; I11.0 Hypertensive heart disease with heart failure; I50.32 Chronic diastolic (congestive) heart failure; I08.1 Rheumatic disorders of both mitral and tricuspid valves; Z53.29 Procedure and treatment not carried out because of patient's decision for other reasons; Z79.01 Long term (current) use of anticoagulants; Z79.890 Hormone replacement therapy; Z79.899 Other long term (current) drug therapy
CPT/HCPCS: 36415; 80048; 80061; 85025; 94760; G0378

== ENCOUNTER 2022-10-19 13:28 | Emergency (ER) | payer MEDICARE ==
[2022-10-19 14:13] LABS: #Basophils 0.1 thou/uL (0.0-0.2); #Eosinphils 0.5 thou/uL (0.0-0.7); #Lymphocytes 1.7 thou/uL (1.20-3.40); #Monocytes 1.1 thou/uL (0.11-0.59); #Neutrophils 6.8 thou/uL (1.40-6.50); %Basophils 0.8 % (0.0-1.0); %Eosinophils 4.5 % (0.0-10.0); %Lymphocytes 16.7 % (21.0-51.0); %Monocytes 10.8 % (0.0-10.0); %Neutrophils 67.2 % (42.0-75.0); Hemoglobin 14.4 g/dL (12.0-16.0); Mean Corpuscular HGB CONC 31.2 g/dL (32.0-36.0); Mean Corpuscular Hemoglobin 29.3 pg (27.0-31.0); Mean Corpuscular Volume 93.9 fl (78.0-98.0); Mean Platelet Volume 7.9 fL (7.4-10.4); Platelet Count 364 10x3/uL (130-400); RBC Distribution Width 12.3 % (11.5-14.5); White Blood Cell (WBC) Count 10.1 10x3/uL (4.8-10.8)
[2022-10-19 14:32] LABS: ALT (SGPT) 10 U/L (8-55); AST (SGOT) 19 U/L (5-34); Albumin 3.9 g/dL (3.4-4.8); Alkaline Phosphatase 101 U/L (40-110); Anion Gap 13 mmol/L (10-20); BUN (Urea Nitrogen) 33 mg/dL (9.8-20.1); Bilirubin, Total 0.4 mg/dL (0.2-1.2); Calc. Creatinine Clearance 0 mL/min (70-130); Carbon Dioxide 27 mmol/L (23-31); Chloride 100 mmol/L (98-107); Estimated GFR 16; Globulin 4.2 g/dL (2.4-3.5); Glucose 59 mg/dL (83-110); Potassium 4.9 mmol/L (3.5-5.1); Protein, Total 8.1 g/dL (5.8-8.1); Sodium 135 mmol/L (136-145)
[2022-10-19 17:06] LABS: Bacteria/HPF 1+ HPF (None Seen); Bilirubin Negative (Negative); Blood, Urine Negative (Negative); Clarity Clear (Clear); Glucose, Urine (Dipstick) Normal (Negative); Ketone, Urine Negative (Negative); Leukocyte 25 Leu/uL (Negative); Nitrite Negative (Negative); Protein, Urine (Dipstick) Negative (Neg-Trace); RBC/HPF 0-3 HPF (0-3); Specific Gravity, Urine 1.009 (1.002-1.036); Squamous Epithelial 0-3 HPF (0-3); Urobilinogen Normal mg/dL (Less than 2); WBC/HPF 0-3 HPF (0-3)
== END 2022-10-19 17:26 | disposition home or self-care (01) ==
LOC: ERS 13:28
DX: N28.9 Disorder of kidney and ureter, unspecified (principal); I10 Essential (primary) hypertension; Z79.899 Other long term (current) drug therapy
CPT/HCPCS: 36415; 36416; 71045; 80053; 81003; 81015; 83880; 84484; 85025; 93005

== ENCOUNTER 2023-01-09 10:34 | Observation (INO) | payer MEDICARE ==
[2023-01-09 11:05] LABS: #Basophils 0.1 thou/uL (0.0-0.2); #Eosinphils 0.5 thou/uL (0.0-0.7); #Monocytes 0.9 thou/uL (0.11-0.59); #Neutrophils 5.8 thou/uL (1.40-6.50); %Basophils 1.3 % (0.0-1.0); %Eosinophils 5.3 % (0.0-10.0); %Lymphocytes 14.1 % (21.0-51.0); %Monocytes 10.2 % (0.0-10.0); %Neutrophils 68.6 % (42.0-75.0); Hemoglobin 13.9 g/dL (12.0-16.0); Mean Corpuscular HGB CONC 33.9 g/dL (32.0-36.0); Mean Corpuscular Hemoglobin 30.7 pg (27.0-31.0); Mean Corpuscular Volume 90.5 fl (78.0-98.0); Mean Platelet Volume 9.5 fL (7.4-10.4); Platelet Count 354 10x3/uL (130-400); RBC Distribution Width 13.4 % (11.5-14.5); Red Blood Cell (RBC) Count 4.53 mill/uL (4.20-5.40); White Blood Cell (WBC) Count 8.4 10x3/uL (4.8-10.8)
[2023-01-09 11:36] LABS: ALT (SGPT) 14 U/L (8-55); AST (SGOT) 22 U/L (5-34); Albumin 3.8 g/dL (3.4-4.8); Alkaline Phosphatase 103 U/L (40-110); Anion Gap 16 mmol/L (10-20); BUN (Urea Nitrogen) 42 mg/dL (9.8-20.1); Bilirubin, Total 0.5 mg/dL (0.2-1.2); Calc. Creatinine Clearance 0 mL/min (70-130); Carbon Dioxide 25 mmol/L (23-31); Chloride 100 mmol/L (98-107); Estimated GFR 32; Globulin 3.9 g/dL (2.4-3.5); Glucose 89 mg/dL (83-110); Lipase 61 U/L (8-78); Potassium 5.5 mmol/L (3.5-5.1); Protein, Total 7.7 g/dL (5.8-8.1); Sodium 135 mmol/L (136-145)
[2023-01-09] MEDS ORDERED: Acetaminophen 325 MG TAB PO PRN (13:54)
[2023-01-09] MEDS ORDERED: Ondansetron PF 4 MG/2 ML Vial IVP PRN (13:54)
[2023-01-09 15:35] LABS: Troponin I Less than 0.010 ng/mL (< 0.028)
[2023-01-09 15:45] VITALS: BMI 25.9
[2023-01-09 18:09] LABS: Troponin I Less than 0.010 ng/mL (< 0.028)
[2023-01-09] MEDS: Apixaban 2.5 MG TAB PO SCH (19:51)
[2023-01-10 05:44] LABS: #Basophils 0.1 thou/uL (0.0-0.2); #Eosinphils 0.5 thou/uL (0.0-0.7); #Monocytes 1.4 thou/uL (0.11-0.59); #Neutrophils 6.6 thou/uL (1.40-6.50); %Basophils 1.2 % (0.0-1.0); %Eosinophils 4.9 % (0.0-10.0); %Lymphocytes 17.9 % (21.0-51.0); %Monocytes 13.4 % (0.0-10.0); Hemoglobin 13.6 g/dL (12.0-16.0); Mean Corpuscular HGB CONC 32.9 g/dL (32.0-36.0); Mean Corpuscular Hemoglobin 29.9 pg (27.0-31.0); Mean Platelet Volume 9.9 fL (7.4-10.4); Platelet Count 349 10x3/uL (130-400); RBC Distribution Width 13.4 % (11.5-14.5); Red Blood Cell (RBC) Count 4.55 mill/uL (4.20-5.40); White Blood Cell (WBC) Count 10.6 10x3/uL (4.8-10.8)
[2023-01-10] MEDS ORDERED: Levothyroxine Sodium 125 MCG TAB PO SCH (06:00)
[2023-01-10 06:14] LABS: Anion Gap 15 mmol/L (10-20); BUN (Urea Nitrogen) 39 mg/dL (9.8-20.1); Calc. Creatinine Clearance 30 mL/min (70-130); Calcium 9.7 mg/dL (7.8-10.44); Carbon Dioxide 23 mmol/L (23-31); Chloride 102 mmol/L (98-107); Estimated GFR 33; Glucose 89 mg/dL (83-110); Potassium 4.4 mmol/L (3.5-5.1); Sodium 136 mmol/L (136-145)
[2023-01-10] MEDS: Apixaban 2.5 MG TAB PO SCH (08:37)
[2023-01-10] MEDS ORDERED: Amiodarone 200 MG TAB PO SCH (09:00)
[2023-01-10 16:23] VITALS: BP 139/65; TEMP 96.4
[2023-01-11] MEDS ORDERED: Furosemide 40 MG TAB PO SCH (07:30)
== END 2023-01-10 17:18 | disposition home or self-care (01) ==
LOC: ERS 10:34 → 2SW 15:23
PROVIDERS: ADMIT Internal Medicine; ATTEND Internal Medicine
DX: R00.1 Bradycardia, unspecified (principal); R00.2 Palpitations; N17.9 Acute kidney failure, unspecified; I07.1 Rheumatic tricuspid insufficiency; E78.5 Hyperlipidemia, unspecified; E87.5 Hyperkalemia; I48.91 Unspecified atrial fibrillation; I11.0 Hypertensive heart disease with heart failure; I50.9 Heart failure, unspecified; I25.2 Old myocardial infarction; E03.9 Hypothyroidism, unspecified; Z79.01 Long term (current) use of anticoagulants; Z79.890 Hormone replacement therapy; Z79.899 Other long term (current) drug therapy; Z90.710 Acquired absence of both cervix and uterus
CPT/HCPCS: 71045; 80048; 80053; 83690; 83880; 84132; 84443; 84484 ×2; 85025 ×2; 93005; 93306; 99285; G0378 ×3; 36415

== ENCOUNTER 2023-04-12 14:22 | Inpatient (IN) | payer MEDICARE ==
[~2023-04-12 14:22] MED LIST changes: -ISOVUE-370 76%-LOCM 1 ML ONE; +Iopamidol-370 76% 500 ML MDV (1 ML CHARGE) ONE
[2023-04-12 15:11] LABS: #Basophils 0.1 thou/uL (0.0-0.2); #Eosinphils 0.5 thou/uL (0.0-0.7); #Monocytes 1.5 thou/uL (0.11-0.59); #Neutrophils 6.5 thou/uL (1.40-6.50); %Basophils 1.2 % (0.0-1.0); %Eosinophils 5.1 % (0.0-10.0); %Lymphocytes 13.5 % (21.0-51.0); %Monocytes 15.1 % (0.0-10.0); %Neutrophils 64.3 % (42.0-75.0); Hematocrit 40.4 % (36.0-47.0); Hemoglobin 13.4 g/dL (12.0-16.0); Mean Corpuscular HGB CONC 33.2 g/dL (32.0-36.0); Mean Corpuscular Hemoglobin 30.6 pg (27.0-31.0); Mean Corpuscular Volume 92.2 fl (78.0-98.0); Mean Platelet Volume 9.4 fL (7.4-10.4); Platelet Count 298 10x3/uL (130-400); RBC Distribution Width 13.6 % (11.5-14.5); Red Blood Cell (RBC) Count 4.38 mill/uL (4.20-5.40); White Blood Cell (WBC) Count 10.2 10x3/uL (4.8-10.8)
[2023-04-12 15:36] LABS: Bacteria/HPF None Seen HPF (None Seen); Bilirubin Negative (Negative); Blood, Urine Negative (Negative); CAUTI Indications for Culture Pelvic or flank pain; Clarity Clear (Clear); Glucose, Urine (Dipstick) Normal (Negative); Ketone, Urine Negative (Negative); Leukocyte 75 Leu/uL (Negative); Nitrite Negative (Negative); Protein, Urine (Dipstick) Negative (Neg-Trace); RBC/HPF 0-3 HPF (0-3); Specific Gravity, Urine 1.012 (1.002-1.036); Squamous Epithelial 0-3 HPF (0-3); Urobilinogen Normal mg/dL (Less than 2); WBC/HPF 0-3 HPF (0-3); pH, Urine 6.5 (5.0-9.0)
[2023-04-12 15:39] LABS: Urine Culture Reflex No No
[2023-04-12 15:40] LABS: ALT (SGPT) 36 U/L (8-55); AST (SGOT) 38 U/L (5-34); Albumin 4.1 g/dL (3.4-4.8); Alkaline Phosphatase 99 U/L (40-110); Anion Gap 13 mmol/L (10-20); BUN (Urea Nitrogen) 24 mg/dL (9.8-20.1); Bilirubin, Total 0.5 mg/dL (0.2-1.2); Calc. Creatinine Clearance 0 mL/min (70-130); Carbon Dioxide 29 mmol/L (23-31); Chloride 97 mmol/L (98-107); Estimated GFR 35; Globulin 3.3 g/dL (2.4-3.5); Glucose 97 mg/dL (83-110); Lipase 43 U/L (8-78); Potassium 4.5 mmol/L (3.5-5.1); Protein, Total 7.4 g/dL (5.8-8.1); Sodium 134 mmol/L (136-145)
[2023-04-12 15:42] LABS: INR-International Normal Ratio 1.2; PTT 37.8 sec (22.9-36.1); Prothrombin Time 15.3 sec (12.0-14.7)
[2023-04-12] MEDS ORDERED: Ondansetron PF 4 MG/2 ML Vial IVP PRN (18:28)
[2023-04-12] MEDS ORDERED: Acetaminophen 325 MG TAB PO PRN (18:28)
[2023-04-12] MEDS ORDERED: HYDROcodone/Acetaminophen 5/325 mg Tablet PO PRN (18:28)
[2023-04-12] MEDS ORDERED: Sodium Chloride 0.9% 500 ML IV SCH (20:15)
[2023-04-12] MEDS ORDERED: Pantoprazole 40 MG VIAL IVP SCH (20:15)
[2023-04-12 21:22] VITALS: BMI 25.2
[2023-04-12] MEDS: Metoprolol Tartrate 25 MG TAB PO SCH (21:35)
[2023-04-12 22:13] LABS: Hematocrit 39.3 % (36.0-47.0)
[2023-04-13] MEDS: Levothyroxine Sodium 125 MCG TAB PO SCH (06:07)
[2023-04-13 07:34] LABS: #Basophils 0.1 thou/uL (0.0-0.2); #Eosinphils 0.7 thou/uL (0.0-0.7); #Monocytes 1.4 thou/uL (0.11-0.59); #Neutrophils 7.4 thou/uL (1.40-6.50); %Basophils 1.3 % (0.0-1.0); %Eosinophils 6.2 % (0.0-10.0); %Lymphocytes 10.9 % (21.0-51.0); %Monocytes 13.2 % (0.0-10.0); %Neutrophils 67.7 % (42.0-75.0); Hemoglobin 12.3 g/dL (12.0-16.0); Mean Corpuscular HGB CONC 33.2 g/dL (32.0-36.0); Mean Corpuscular Hemoglobin 30.4 pg (27.0-31.0); Mean Corpuscular Volume 91.6 fl (78.0-98.0); Mean Platelet Volume 9.4 fL (7.4-10.4); Platelet Count 257 10x3/uL (130-400); RBC Distribution Width 13.7 % (11.5-14.5); Red Blood Cell (RBC) Count 4.04 mill/uL (4.20-5.40); White Blood Cell (WBC) Count 10.9 10x3/uL (4.8-10.8)
[2023-04-13 08:06] LABS: Anion Gap 11 mmol/L (10-20); BUN (Urea Nitrogen) 19 mg/dL (9.8-20.1); Calc. Creatinine Clearance 45 mL/min (70-130); Calcium 9.4 mg/dL (7.8-10.44); Carbon Dioxide 27 mmol/L (23-31); Chloride 100 mmol/L (98-107); Estimated GFR 56; Glucose 99 mg/dL (83-110); Potassium 3.9 mmol/L (3.5-5.1); Sodium 134 mmol/L (136-145)
[2023-04-13] MEDS: Metoprolol Tartrate 25 MG TAB PO SCH ×2 (08:54→21:22)
[2023-04-13] MEDS: Losartan 25 MG TAB PO SCH (08:54)
[2023-04-13] MEDS: Pantoprazole 40 MG VIAL IVP SCH ×2 (08:54→21:22)
[2023-04-13] MEDS ORDERED: Amiodarone 200 MG TAB PO SCH (11:15)
[2023-04-14] MEDS: Levothyroxine Sodium 125 MCG TAB PO SCH (05:55)
[2023-04-14] MEDS ORDERED: Amiodarone 200 MG TAB PO SCH ×2 (09:00→11:30)
[2023-04-14] MEDS ORDERED: Ondansetron HCl/PF 4 MG/2 ML Vial IVP PRN (09:09)
[2023-04-14] MEDS ORDERED: Promethazine HCl 25 MG/ML VIAL IM PRN (09:09)
[2023-04-14 10:28] VITALS: TEMP 97.6
[2023-04-14] MEDS ORDERED: Losartan 25 MG TAB PO SCH (11:30)
[2023-04-14] MEDS ORDERED: Pantoprazole 40 MG VIAL IVP SCH (11:30)
[2023-04-14] MEDS: Losartan 25 MG TAB PO SCH (11:42)
[2023-04-14] MEDS: Pantoprazole 40 MG VIAL IVP SCH (11:43)
[2023-04-14] MEDS: Metoprolol Tartrate 25 MG TAB PO SCH (12:00)
[2023-04-14 13:19] VITALS: BP 171/73
[2023-04-15] MEDS ORDERED: FLU VACC QS2023(65UP)/MF59C/PF 60 MCG/0.5 ML SYRINGE IM ONE (09:00)
== END 2023-04-14 16:08 | disposition home or self-care (01) | DRG 378 ==
LOC: ERS 14:22 → T4-B 18:28 → OBSVTOIN 04-13 16:30
PROVIDERS: ADMIT Family Medicine; ATTEND Internal Medicine
PROC: 0DJ08ZZ Inspection of Upper Intestinal Tract, Via Natural or Artificial Opening Endoscopic (ICD-10-PCS; principal; 2023-04-14)
DX: K57.31 Diverticulosis of large intestine without perforation or abscess with bleeding (principal); N17.9 Acute kidney failure, unspecified; K21.00 Gastro-esophageal reflux disease with esophagitis, without bleeding; I12.9 Hypertensive chronic kidney disease with stage 1 through stage 4 chronic kidney disease, or unspecified chronic kidney disease; N18.30 Chronic kidney disease, stage 3 unspecified; I34.1 Nonrheumatic mitral (valve) prolapse; I48.91 Unspecified atrial fibrillation; R33.9 Retention of urine, unspecified; E03.9 Hypothyroidism, unspecified; N32.0 Bladder-neck obstruction; Z90.710 Acquired absence of both cervix and uterus; Z79.890 Hormone replacement therapy; Z79.899 Other long term (current) drug therapy; Z83.3 Family history of diabetes mellitus
CPT/HCPCS: 36415; 74177; 80048; 80053; 81001; 83690; 85025; 85610; 85730; 86850; 86870; 86900; 86901; 86904; 86905; 86922; C9113; J7030; Q9967

== ENCOUNTER 2024-01-20 22:09 | Emergency (ER) | payer MEDICARE ==
[2024-01-21 00:45] LABS: Anion Gap 10 mmol/L (10-20); BUN (Urea Nitrogen) 22 mg/dL (9.8-20.1); Calc. Creatinine Clearance 0 mL/min (70-130); Calcium 9.7 mg/dL (7.8-10.44); Carbon Dioxide 29 mmol/L (23-31); Chloride 101 mmol/L (98-107); Estimated GFR 52; Glucose 92 mg/dL (83-110); Potassium 4.1 mmol/L (3.5-5.1); Sodium 136 mmol/L (136-145)
[2024-01-21] MEDS ORDERED: Iopamidol-370 76% 500 ML MDV (1 ML CHARGE) ONE (11:23)
== END 2024-01-21 04:37 | disposition home or self-care (01) ==
LOC: ERS 22:09
DX: M79.671 Pain in right foot (principal); I10 Essential (primary) hypertension; I48.91 Unspecified atrial fibrillation; I25.2 Old myocardial infarction
CPT/HCPCS: 36415; 80048; Q9967

== ENCOUNTER 2024-03-17 05:11 | Inpatient (IN) | payer MEDICARE ==
[2024-03-17 05:40] LABS: #Basophils 0.05 10x3/uL (0.0-0.2); %Basophils 0.3 % (0.0-1.0); %Eosinophils 0.7 % (0.0-10.0); %Lymphocytes 3.5 % (21.0-51.0); %Monocytes 8.8 % (0.0-10.0); %Neutrophils 86.1 % (42.0-75.0); Hematocrit 33.2 % (36.0-47.0); Hemoglobin 11.2 g/dL (12.0-16.0); Mean Corpuscular HGB CONC 33.7 g/dL (32.0-36.0); Mean Corpuscular Hemoglobin 31.1 pg (27.0-31.0); Mean Corpuscular Volume 92.2 fL (78.0-98.0); Mean Platelet Volume 8.7 fL (7.4-10.4); Platelet Count 344 10x3/uL (130-400); RBC Distribution Width 14.9 % (11.5-14.5)
[2024-03-17 06:03] LABS: ALT (SGPT) 9 U/L (8-55); AST (SGOT) 18 U/L (5-34); Alkaline Phosphatase 97 U/L (40-110); Anion Gap 14 mmol/L (10-20); BUN (Urea Nitrogen) 18 mg/dL (9.8-20.1); Calc. Creatinine Clearance 0 mL/min (70-130); Calcium 9.3 mg/dL (7.8-10.44); Carbon Dioxide 22 mmol/L (23-31); Chloride 99 mmol/L (98-107); Estimated GFR 67; Globulin 3.8 g/dL (2.4-3.5); Glucose 105 mg/dL (83-110); Potassium 3.9 mmol/L (3.5-5.1); Protein, Total 6.8 g/dL (5.8-8.1); Sodium 131 mmol/L (136-145)
[2024-03-17 06:28] LABS: Bacteria/HPF 4+ HPF (None Seen); Bilirubin Negative (Negative); Blood, Urine 3+ (Negative); CAUTI Indications for Culture Dysuria,urgency,freq; Clarity Extra Turbid (Clear); Glucose, Urine (Dipstick) Normal (Negative); Ketone, Urine Trace mg/dL (Negative); Leukocyte 500 Leu/uL (Negative); Nitrite Negative (Negative); Protein, Urine (Dipstick) 200 mg/dL (Neg-Trace); RBC/HPF 21-50 HPF (0-3); Specific Gravity, Urine 1.005 (1.002-1.036); Squamous Epithelial None Seen HPF (0-3); Urobilinogen Normal mg/dL (Less than 2); WBC/HPF Greater than 50 HPF (0-3); pH, Urine 6.5 (5.0-9.0)
[2024-03-17 06:29] LABS: Urine Culture Reflex Yes Yes
[2024-03-17] MEDS ORDERED: Senokot S 8.6-50 MG TAB PO PRN (08:36)
[2024-03-17] MEDS ORDERED: hydrALAZINE 25 MG TAB PO PRN (08:37)
[2024-03-17] MEDS: Meropenem 1 GM in Sodium Chloride 0.9% 100 ML IVPB SCH ×2 (09:00→16:59)
[2024-03-17] MEDS: Levothyroxine Sodium 125 MCG TAB PO SCH (09:25)
[2024-03-17] MEDS: Metoprolol Tartrate 50 MG TAB PO SCH (09:25)
[2024-03-17] MEDS: Amiodarone 200 MG TAB PO SCH (09:25)
[2024-03-17] MEDS: Saccharomyces boulardii 250 MG CAP PO SCH (09:25)
[2024-03-17] MEDS: Polyethylene Glycol 3350 17 GM Packet PO SCH (09:26)
[2024-03-17] MEDS: NS 0.9% w/ 20 MEQ KCL 1,000 ML/1,000 ML BAG IV SCH (09:27)
[2024-03-17 10:26] VITALS: BMI 26.6
[2024-03-17] MEDS: Apixaban 5 MG TAB PO SCH (10:39)
[2024-03-17] MEDS ORDERED: Meropenem 1 GM in Sodium Chloride 0.9% 100 ML IVPB SCH (14:00)
[2024-03-17] MEDS: Multivit, Therapeutic 1 TAB PO SCH (20:43)
[2024-03-18] MEDS: Levothyroxine Sodium 125 MCG TAB PO SCH (05:15)
[2024-03-18 08:54] LABS: #Basophils 0.09 10x3/uL (0.0-0.2); %Basophils 0.6 % (0.0-1.0); %Eosinophils 3.2 % (0.0-10.0); %Lymphocytes 7.4 % (21.0-51.0); %Monocytes 9.3 % (0.0-10.0); %Neutrophils 78.8 % (42.0-75.0); Hematocrit 33.3 % (36.0-47.0); Hemoglobin 10.7 g/dL (12.0-16.0); Mean Corpuscular HGB CONC 32.1 g/dL (32.0-36.0); Mean Corpuscular Hemoglobin 30.7 pg (27.0-31.0); Mean Corpuscular Volume 95.7 fL (78.0-98.0); Platelet Count 338 10x3/uL (130-400); RBC Distribution Width 15.5 % (11.5-14.5); Red Blood Cell (RBC) Count 3.48 mill/uL (4.20-5.40)
[2024-03-18 09:16] LABS: Anion Gap 12 mmol/L (10-20); BUN (Urea Nitrogen) 11 mg/dL (9.8-20.1); Calc. Creatinine Clearance 58 mL/min (70-130); Calcium 9.2 mg/dL (7.8-10.44); Carbon Dioxide 25 mmol/L (23-31); Chloride 105 mmol/L (98-107); Estimated GFR 73; Glucose 131 mg/dL (83-110); Potassium 3.9 mmol/L (3.5-5.1); Sodium 138 mmol/L (136-145)
[2024-03-18] MEDS: Acetaminophen 325 MG TAB PO PRN (09:35)
[2024-03-18] MEDS: Senokot S 8.6-50 MG TAB PO SCH (21:23)
[2024-03-19 07:18] LABS: %Basophils 0.7 % (0.0-1.0); %Eosinophils 6.1 % (0.0-10.0); %Lymphocytes 8.1 % (21.0-51.0); %Monocytes 10.6 % (0.0-10.0); %Neutrophils 73.9 % (42.0-75.0); Hemoglobin 10.8 g/dL (12.0-16.0); Mean Corpuscular HGB CONC 32.7 g/dL (32.0-36.0); Mean Corpuscular Hemoglobin 30.3 pg (27.0-31.0); Mean Corpuscular Volume 92.7 fL (78.0-98.0); Mean Platelet Volume 9.1 fL (7.4-10.4); Platelet Count 340 10x3/uL (130-400); RBC Distribution Width 15.3 % (11.5-14.5); Red Blood Cell (RBC) Count 3.56 mill/uL (4.20-5.40)
[2024-03-19 07:52] LABS: Anion Gap 11 mmol/L (10-20); BUN (Urea Nitrogen) 11 mg/dL (9.8-20.1); Calc. Creatinine Clearance 58 mL/min (70-130); Calcium 9.5 mg/dL (7.8-10.44); Carbon Dioxide 24 mmol/L (23-31); Chloride 104 mmol/L (98-107); Estimated GFR 72; Glucose 96 mg/dL (83-110); Potassium 4.1 mmol/L (3.5-5.1); Sodium 135 mmol/L (136-145)
[2024-03-19] MEDS: Ciprofloxacin 500 MG TAB PO SCH (21:00)
[2024-03-20 06:42] VITALS: TEMP 97.8
[2024-03-20 08:42] VITALS: BP 150/74
[2024-03-20 09:41] LABS: #Basophils 0.09 10x3/uL (0.0-0.2); %Basophils 0.9 % (0.0-1.0); %Eosinophils 5.9 % (0.0-10.0); %Lymphocytes 10.5 % (21.0-51.0); %Monocytes 9.9 % (0.0-10.0); Hematocrit 36.7 % (36.0-47.0); Hemoglobin 11.9 g/dL (12.0-16.0); Mean Corpuscular HGB CONC 32.4 g/dL (32.0-36.0); Mean Corpuscular Hemoglobin 30.1 pg (27.0-31.0); Mean Corpuscular Volume 92.9 fL (78.0-98.0); Mean Platelet Volume 9.4 fL (7.4-10.4); Platelet Count 375 10x3/uL (130-400); RBC Distribution Width 15.1 % (11.5-14.5); Red Blood Cell (RBC) Count 3.95 mill/uL (4.20-5.40)
[2024-03-20 10:04] LABS: Anion Gap 13 mmol/L (10-20); BUN (Urea Nitrogen) 10 mg/dL (9.8-20.1); Calc. Creatinine Clearance 57 mL/min (70-130); Calcium 10.2 mg/dL (7.8-10.44); Carbon Dioxide 26 mmol/L (23-31); Chloride 101 mmol/L (98-107); Estimated GFR 71; Glucose 137 mg/dL (83-110); Sodium 136 mmol/L (136-145)
== END 2024-03-20 14:14 | disposition home or self-care (01) | DRG 690 ==
LOC: ERS 05:11 → SURG A 08:30
PROVIDERS: ADMIT Internal Medicine; ATTEND Internal Medicine
DX: N30.00 Acute cystitis without hematuria (principal); E87.1 Hypo-osmolality and hyponatremia; R33.9 Retention of urine, unspecified; E03.9 Hypothyroidism, unspecified; I48.0 Paroxysmal atrial fibrillation; I12.9 Hypertensive chronic kidney disease with stage 1 through stage 4 chronic kidney disease, or unspecified chronic kidney disease; N18.30 Chronic kidney disease, stage 3 unspecified; D64.9 Anemia, unspecified; Z96.641 Presence of right artificial hip joint; Z79.899 Other long term (current) drug therapy; Z79.890 Hormone replacement therapy; Z88.5 Allergy status to narcotic agent; Z79.01 Long term (current) use of anticoagulants; Z90.710 Acquired absence of both cervix and uterus; N18.2 Chronic kidney disease, stage 2 (mild); K59.00 Constipation, unspecified; B96.5 Pseudomonas (aeruginosa) (mallei) (pseudomallei) as the cause of diseases classified elsewhere
CPT/HCPCS: 36415; 51702; 80048; 80053; 81001; 83605; 83735; 85025; 87040; 87077; 87086; 87186; J2185; J3480

== ENCOUNTER 2024-06-15 17:52 | Observation (INO) | payer MEDICARE ==
[2024-06-15 19:04] LABS: #Basophils 0.12 10x3/uL (0.0-0.2); %Basophils 1.5 % (0.0-1.0); %Eosinophils 5.6 % (0.0-10.0); %Lymphocytes 15.5 % (21.0-51.0); %Monocytes 14.7 % (0.0-10.0); %Neutrophils 62.1 % (42.0-75.0); Hematocrit 34.9 % (36.0-47.0); Hemoglobin 11.1 g/dL (12.0-16.0); Mean Corpuscular HGB CONC 31.8 g/dL (32.0-36.0); Mean Corpuscular Hemoglobin 30.3 pg (27.0-31.0); Mean Corpuscular Volume 95.4 fL (78.0-98.0); Mean Platelet Volume 8.9 fL (7.4-10.4); Platelet Count 389 10x3/uL (130-400); RBC Distribution Width 16.6 % (11.5-14.5); Red Blood Cell (RBC) Count 3.66 mill/uL (4.20-5.40)
[2024-06-15 19:23] LABS: ALT (SGPT) 16 U/L (8-55); AST (SGOT) 28 U/L (5-34); Albumin 3.4 g/dL (3.4-4.8); Alkaline Phosphatase 119 U/L (40-110); Anion Gap 13 mmol/L (10-20); BUN (Urea Nitrogen) 22 mg/dL (9.8-20.1); Bilirubin, Total 0.7 mg/dL (0.2-1.2); Calc. Creatinine Clearance 0 mL/min (70-130); Calcium 9.4 mg/dL (7.8-10.44); Carbon Dioxide 24 mmol/L (23-31); Chloride 102 mmol/L (98-107); Estimated GFR 59; Glucose 123 mg/dL (83-110); Protein, Total 7.4 g/dL (5.8-8.1); Sodium 135 mmol/L (136-145)
[2024-06-15 19:25] LABS: Troponin I Less than 0.010 ng/mL (< 0.028)
[2024-06-15] MEDS ORDERED: Ondansetron PF 4 MG/2 ML Vial IVP PRN (21:42)
[2024-06-15] MEDS ORDERED: Ondansetron ODT 4 MG TAB PO PRN (21:42)
[2024-06-15] MEDS ORDERED: Nitroglycerin 0.4 MG TAB (25 Tab Bottle) SL PRN (21:42)
[2024-06-15 22:58] VITALS: BMI 24.6
[2024-06-15 23:06] LABS: Troponin I Less than 0.010 ng/mL (< 0.028)
[2024-06-15] MEDS: Aspirin Chewable 81 MG TAB PO SCH (23:12)
[2024-06-15] MEDS ORDERED: Apixaban 5 MG TAB ONE (23:13)
[2024-06-15] MEDS ORDERED: Furosemide 20 MG (2 mL) VIAL ONE (23:13)
[2024-06-15] MEDS: Apixaban 5 MG TAB PO SCH (23:18)
[2024-06-15] MEDS: Furosemide 20 MG (2 mL) VIAL SLOW IVP SCH (23:18)
[2024-06-16 01:55] LABS: Troponin I Less than 0.010 ng/mL (< 0.028)
[2024-06-16 05:26] LABS: #Basophils 0.11 10x3/uL (0.0-0.2); %Basophils 0.9 % (0.0-1.0); %Eosinophils 3.7 % (0.0-10.0); %Lymphocytes 9.6 % (21.0-51.0); %Monocytes 12.1 % (0.0-10.0); Hematocrit 33.6 % (36.0-47.0); Hemoglobin 10.8 g/dL (12.0-16.0); Mean Corpuscular HGB CONC 32.1 g/dL (32.0-36.0); Mean Corpuscular Hemoglobin 29.9 pg (27.0-31.0); Mean Corpuscular Volume 93.1 fL (78.0-98.0); Mean Platelet Volume 9.1 fL (7.4-10.4); Platelet Count 381 10x3/uL (130-400); RBC Distribution Width 16.6 % (11.5-14.5); Red Blood Cell (RBC) Count 3.61 mill/uL (4.20-5.40)
[2024-06-16 05:27] LABS: Anion Gap 14 mmol/L (10-20); BUN (Urea Nitrogen) 17 mg/dL (9.8-20.1); Calc. Creatinine Clearance 55 mL/min (70-130); Calcium 9.1 mg/dL (7.8-10.44); Carbon Dioxide 25 mmol/L (23-31); Cardiac Risk 2.2 (Less than 4.5); Chloride 101 mmol/L (98-107); Cholesterol 97 mg/dl (< 200 Desired); Estimated GFR 76; Glucose 88 mg/dL (83-110); HDL Cholesterol 45 mg/dL (>60 Neg Risk); LDL Cholesterol, Calculated 42 mg/dL; Potassium 3.5 mmol/L (3.5-5.1); Sodium 136 mmol/L (136-145); Triglycerides 50 mg/dL (Less than 150)
[2024-06-16] MEDS: Acetaminophen 325 MG TAB PO PRN (06:30)
[2024-06-16] MEDS: Levothyroxine Sodium 125 MCG TAB PO SCH (06:31)
[2024-06-16] MEDS ORDERED: Apixaban 5 MG TAB PO SCH ×2 (09:00→21:00)
[2024-06-16] MEDS: Losartan 25 MG TAB PO SCH (09:45)
[2024-06-16] MEDS: Aspirin Chewable 81 MG TAB PO SCH (09:45)
[2024-06-16] MEDS: Potassium Chloride 20 MEQ TAB PO SCH (09:45)
[2024-06-16] MEDS: Amiodarone 200 MG TAB PO SCH (09:45)
[2024-06-16] MEDS ORDERED: Regadenoson 0.4 MG/5 ML SYRINGE ONE (10:13)
[2024-06-16] MEDS: Furosemide 40 MG (4 mL) VIAL SLOW IVP SCH (13:38)
[2024-06-16 17:14] VITALS: BP 171/69; TEMP 97.4
== END 2024-06-16 17:30 | disposition home or self-care (01) ==
LOC: ERS 17:52 → ERHOLD 20:51 → OBS 06-16 01:31
PROVIDERS: ADMIT Internal Medicine; ATTEND Internal Medicine
DX: R07.9 Chest pain, unspecified (principal); I25.10 Atherosclerotic heart disease of native coronary artery without angina pectoris; I48.0 Paroxysmal atrial fibrillation; I25.2 Old myocardial infarction; I10 Essential (primary) hypertension; E03.9 Hypothyroidism, unspecified; Z90.710 Acquired absence of both cervix and uterus; Z96.641 Presence of right artificial hip joint; Z85.828 Personal history of other malignant neoplasm of skin; Z88.5 Allergy status to narcotic agent; Z79.890 Hormone replacement therapy; Z79.01 Long term (current) use of anticoagulants; Z79.899 Other long term (current) drug therapy
CPT/HCPCS: 71045; 78452; 80048; 80053; 80061; 83880; 84145; 84484 ×3; 85025 ×2; 87428; 93005; 93017; 93971; 94760 ×3; 96374; 96376; 99285; A9502; G0378 ×2; J1940 ×2; J2785 ×2; 36415

== ENCOUNTER 2025-01-11 16:27 | Emergency (ER) | payer MEDICARE ==
[2025-01-11 17:12] LABS: Bacteria/HPF None Seen HPF (None Seen); CAUTI Indications for Culture Dysuria,urgency,freq; Glucose, Urine (Dipstick) Normal (Negative); Leukocyte Negative Leu/uL (Negative); Protein, Urine (Dipstick) 10 mg/dL (Neg-Trace); RBC/HPF 0-3 HPF (0-3); Specific Gravity, Urine 1.006 (1.002-1.036); WBC/HPF 0-3 HPF (0-3)
[2025-01-11 17:16] LABS: Urine Culture Reflex No No
[2025-01-11 17:24] LABS: #Basophils 0.13 10x3/uL (0.0-0.2); #Eosinophils 0.35 10x3/uL (0.0-0.7); #Monocytes 1.45 10x3/uL (0.11-0.59); #Neutrophils 5.54 10x3/uL (1.40-6.50); %Basophils 1.4 % (0.0-1.0); %Eosinophils 3.9 % (0.0-10.0); %Lymphocytes 17.1 % (21.0-51.0); %Monocytes 16.0 % (0.0-10.0); %Neutrophils 61.0 % (42.0-75.0); Hematocrit 38.9 % (36.0-47.0); Hemoglobin 13.0 g/dL (12.0-16.0); Mean Corpuscular Hemoglobin 30.2 pg (27.0-31.0); Mean Corpuscular Volume 90.5 fL (78.0-98.0); Platelet Count 271 10x3/uL (130-400); Red Blood Cell (RBC) Count 4.30 mill/uL (4.20-5.40); White Blood Cell (WBC) Count 9.07 10x3/uL (4.8-10.8)
[2025-01-11 17:48] LABS: ALT (SGPT) 97 U/L (Less than 34); AST (SGOT) 132 U/L (11-34); Albumin 2.8 g/dL (3.1-4.5); Alkaline Phosphatase 859 U/L (40-110); Anion Gap 14 mmol/L (10-20); BUN (Urea Nitrogen) 20 mg/dL (9.8-20.1); Bilirubin, Total 6.0 mg/dL (0.3-1.2); Calc. Creatinine Clearance 0 mL/min (70-130); Calcium 9.4 mg/dL (7.8-10.44); Carbon Dioxide 23 mmol/L (23-31); Chloride 101 mmol/L (98-107); Globulin 5.3 g/dL (2.4-3.5); Glucose 118 mg/dL (83-110); Potassium 3.5 mmol/L (3.5-5.1); Sodium 134 mmol/L (136-145)
== END 2025-01-11 20:15 | disposition home or self-care (01) ==
LOC: ERS 16:27
DX: E86.0 Dehydration (principal); E80.6 Other disorders of bilirubin metabolism; R94.5 Abnormal results of liver function studies; I10 Essential (primary) hypertension; E03.9 Hypothyroidism, unspecified; I25.2 Old myocardial infarction; I48.91 Unspecified atrial fibrillation; I25.10 Atherosclerotic heart disease of native coronary artery without angina pectoris; Z95.5 Presence of coronary angioplasty implant and graft; Z55.6 Problems related to health literacy
CPT/HCPCS: 80053; 81001; 85025; 96360

== ENCOUNTER 2025-06-05 21:12 | Inpatient (IN) | payer MEDICARE ==
[2025-06-05 22:08] LABS: #Basophils 0.06 10x3/uL (0.0-0.2); #Eosinophils 0.22 10x3/uL (0.0-0.7); #Monocytes 1.28 10x3/uL (0.11-0.59); #Neutrophils 8.23 10x3/uL (1.40-6.50); %Basophils 0.6 % (0.0-1.0); %Eosinophils 2.1 % (0.0-10.0); %Lymphocytes 5.4 % (21.0-51.0); %Monocytes 12.3 % (0.0-10.0); %Neutrophils 79.1 % (42.0-75.0); Hematocrit 44.3 % (36.0-47.0); Hemoglobin 14.7 g/dL (12.0-16.0); Mean Corpuscular Hemoglobin 30.1 pg (27.0-31.0); Mean Corpuscular Volume 90.6 fL (78.0-98.0); Platelet Count 219 10x3/uL (130-400); Red Blood Cell (RBC) Count 4.89 mill/uL (4.20-5.40); White Blood Cell (WBC) Count 10.40 10x3/uL (4.8-10.8)
[2025-06-05 22:25] LABS: ALT (SGPT) 131 U/L (Less than 34); AST (SGOT) 149 U/L (11-34); Albumin 3.5 g/dL (3.1-4.5); Alkaline Phosphatase 413 U/L (40-110); Anion Gap 12 mmol/L (10-20); BUN (Urea Nitrogen) 19 mg/dL (9.8-20.1); Bilirubin, Total 4.7 mg/dL (0.3-1.2); Calc. Creatinine Clearance 0 mL/min (70-130); Calcium 10.5 mg/dL (7.8-10.44); Carbon Dioxide 30 mmol/L (23-31); Chloride 95 mmol/L (98-107); Globulin 4.9 g/dL (2.4-3.5); Glucose 141 mg/dL (83-110); Lipase 48 U/L (8-78); Potassium 3.8 mmol/L (3.5-5.1); Sodium 133 mmol/L (136-145)
[2025-06-05] MEDS ORDERED: Ondansetron PF 4 MG/2 ML Vial ONE (23:22)
[2025-06-05] MEDS ORDERED: PHOS-NAK 1 PKT PACK PO PRN (23:45)
[2025-06-05] MEDS ORDERED: Potassium Chloride 20 MEQ in Premix 1 BAG IVPB PRN (23:45)
[2025-06-05] MEDS ORDERED: Electrolyte Replacement Protocol 1 EACH FS SCH (23:45)
[2025-06-05] MEDS ORDERED: Calcium Carbonate 500 MG ChewTAB PO PRN (23:45)
[2025-06-05] MEDS ORDERED: Ondansetron PF 4 MG/2 ML Vial IVP PRN (23:45)
[2025-06-05] MEDS ORDERED: Nitroglycerin 2% Ointment 1 INCH/1 GM Packet ONE (23:53)
[2025-06-05] MEDS ORDERED: Apixaban 5 MG TAB ONE (23:54)
[2025-06-05] MEDS ORDERED: Furosemide 40 MG (4 mL) VIAL ONE (23:54)
[2025-06-06 01:23] VITALS: BMI 20.7
[2025-06-06] MEDS: Acetaminophen 325 MG TAB PO PRN (01:35)
[2025-06-06 03:54] LABS: #Basophils 0.05 10x3/uL (0.0-0.2); #Eosinophils 0.12 10x3/uL (0.0-0.7); #Monocytes 1.47 10x3/uL (0.11-0.59); #Neutrophils 7.99 10x3/uL (1.40-6.50); %Basophils 0.5 % (0.0-1.0); %Eosinophils 1.1 % (0.0-10.0); %Lymphocytes 9.3 % (21.0-51.0); %Monocytes 13.8 % (0.0-10.0); %Neutrophils 74.8 % (42.0-75.0); Hematocrit 45.1 % (36.0-47.0); Hemoglobin 14.8 g/dL (12.0-16.0); Mean Corpuscular Hemoglobin 30.1 pg (27.0-31.0); Mean Corpuscular Volume 91.7 fL (78.0-98.0); Platelet Count 241 10x3/uL (130-400); Red Blood Cell (RBC) Count 4.92 mill/uL (4.20-5.40); White Blood Cell (WBC) Count 10.67 10x3/uL (4.8-10.8)
[2025-06-06 04:07] LABS: ALT (SGPT) 120 U/L (Less than 34); AST (SGOT) 143 U/L (11-34); Albumin 3.4 g/dL (3.1-4.5); Alkaline Phosphatase 392 U/L (40-110); Anion Gap 16 mmol/L (10-20); BUN (Urea Nitrogen) 17 mg/dL (9.8-20.1); Bilirubin, Total 4.7 mg/dL (0.3-1.2); Calc. Creatinine Clearance 37 mL/min (70-130); Calcium 10.3 mg/dL (7.8-10.44); Carbon Dioxide 29 mmol/L (23-31); Chloride 93 mmol/L (98-107); Globulin 4.9 g/dL (2.4-3.5); Glucose 119 mg/dL (83-110); Magnesium 2.0 mg/dL (1.6-2.6); Potassium 3.6 mmol/L (3.5-5.1); Sodium 134 mmol/L (136-145)
[2025-06-06] MEDS: Furosemide 40 MG (4 mL) VIAL SLOW IVP SCH (06:07)
[2025-06-06] MEDS: Magnesium 2 GM/50 ML(in water) 2 GM in Premix 1 BAG IVPB PRN (09:00)
[2025-06-06] MEDS: Apixaban 2.5 MG TAB PO SCH (09:00)
[2025-06-06] MEDS ORDERED: Potassium Chloride 20 MEQ in Premix 1 BAG IVPB PRN (16:00)
[2025-06-06] MEDS ORDERED: PHOS-NAK 1 PKT PACK PO PRN (16:00)
[2025-06-06] MEDS ORDERED: Magnesium Sulfate In Water 4 GM in Premix 1 BAG IVPB PRN (16:00)
[2025-06-07 04:47] LABS: Anion Gap 13 mmol/L (10-20); BUN (Urea Nitrogen) 22 mg/dL (9.8-20.1); Calc. Creatinine Clearance 33 mL/min (70-130); Calcium 10.0 mg/dL (7.8-10.44); Carbon Dioxide 33 mmol/L (23-31); Chloride 92 mmol/L (98-107); Glucose 97 mg/dL (83-110); Potassium 3.4 mmol/L (3.5-5.1); Sodium 135 mmol/L (136-145)
[2025-06-07 05:01] LABS: Magnesium 2.2 mg/dL (1.6-2.6)
[2025-06-07 10:29] LABS: Anion Gap 13 mmol/L (10-20); BUN (Urea Nitrogen) 24 mg/dL (9.8-20.1); Calc. Creatinine Clearance 36 mL/min (70-130); Calcium 9.5 mg/dL (7.8-10.44); Carbon Dioxide 28 mmol/L (23-31); Chloride 94 mmol/L (98-107); Glucose 169 mg/dL (83-110); Potassium 4.4 mmol/L (3.5-5.1); Sodium 131 mmol/L (136-145)
[2025-06-08 04:11] LABS: #Basophils 0.11 10x3/uL (0.0-0.2); #Eosinophils 0.28 10x3/uL (0.0-0.7); #Monocytes 2.38 10x3/uL (0.11-0.59); #Neutrophils 8.85 10x3/uL (1.40-6.50); %Basophils 0.8 % (0.0-1.0); %Eosinophils 2.1 % (0.0-10.0); %Lymphocytes 12.2 % (21.0-51.0); %Monocytes 17.9 % (0.0-10.0); %Neutrophils 66.3 % (42.0-75.0); Hematocrit 42.6 % (36.0-47.0); Hemoglobin 13.9 g/dL (12.0-16.0); Mean Corpuscular Hemoglobin 29.7 pg (27.0-31.0); Mean Corpuscular Volume 91.0 fL (78.0-98.0); Platelet Count 246 10x3/uL (130-400); Red Blood Cell (RBC) Count 4.68 mill/uL (4.20-5.40); White Blood Cell (WBC) Count 13.33 10x3/uL (4.8-10.8)
[2025-06-08 04:30] LABS: ALT (SGPT) 53 U/L (Less than 34); AST (SGOT) 46 U/L (11-34); Albumin 2.8 g/dL (3.1-4.5); Alkaline Phosphatase 289 U/L (40-110); Anion Gap 14 mmol/L (10-20); BUN (Urea Nitrogen) 27 mg/dL (9.8-20.1); Bilirubin, Total 2.5 mg/dL (0.3-1.2); Calc. Creatinine Clearance 34 mL/min (70-130); Calcium 9.5 mg/dL (7.8-10.44); Carbon Dioxide 26 mmol/L (23-31); Chloride 96 mmol/L (98-107); Globulin 4.4 g/dL (2.4-3.5); Glucose 95 mg/dL (83-110); Magnesium 2.1 mg/dL (1.6-2.6); Potassium 3.7 mmol/L (3.5-5.1); Sodium 132 mmol/L (136-145)
[2025-06-09 05:52] LABS: #Basophils 0.14 10x3/uL (0.0-0.2); #Eosinophils 0.39 10x3/uL (0.0-0.7); #Monocytes 1.37 10x3/uL (0.11-0.59); #Neutrophils 4.45 10x3/uL (1.40-6.50); %Basophils 1.8 % (0.0-1.0); %Eosinophils 4.9 % (0.0-10.0); %Lymphocytes 19.2 % (21.0-51.0); %Monocytes 17.2 % (0.0-10.0); %Neutrophils 55.9 % (42.0-75.0); Hematocrit 47.7 % (36.0-47.0); Hemoglobin 15.6 g/dL (12.0-16.0); Mean Corpuscular Hemoglobin 30.2 pg (27.0-31.0); Mean Corpuscular Volume 92.4 fL (78.0-98.0); Platelet Count 303 10x3/uL (130-400); Red Blood Cell (RBC) Count 5.16 mill/uL (4.20-5.40); White Blood Cell (WBC) Count 7.96 10x3/uL (4.8-10.8)
[2025-06-09 06:14] LABS: ALT (SGPT) 47 U/L (Less than 34); AST (SGOT) 47 U/L (11-34); Albumin 3.0 g/dL (3.1-4.5); Alkaline Phosphatase 279 U/L (40-110); Anion Gap 13 mmol/L (10-20); BUN (Urea Nitrogen) 28 mg/dL (9.8-20.1); Bilirubin, Total 2.0 mg/dL (0.3-1.2); Calc. Creatinine Clearance 33 mL/min (70-130); Calcium 9.8 mg/dL (7.8-10.44); Carbon Dioxide 30 mmol/L (23-31); Chloride 93 mmol/L (98-107); Globulin 4.8 g/dL (2.4-3.5); Glucose 87 mg/dL (83-110); Magnesium 2.1 mg/dL (1.6-2.6); Potassium 4.1 mmol/L (3.5-5.1); Sodium 132 mmol/L (136-145)
[2025-06-09 07:57] VITALS: TEMP 97.8
[2025-06-09 11:06] VITALS: BP 100/67
== END 2025-06-09 14:50 | disposition home or self-care (01) | DRG 291 ==
LOC: ERS 21:12 → PCU 23:57
PROVIDERS: ADMIT Student in an Organized Health Care Education/Training Program; ATTEND Internal Medicine
DX: I11.0 Hypertensive heart disease with heart failure (principal); I50.43 Acute on chronic combined systolic (congestive) and diastolic (congestive) heart failure; I48.20 Chronic atrial fibrillation, unspecified; I27.21 Secondary pulmonary arterial hypertension; K82.9 Disease of gallbladder, unspecified; K76.1 Chronic passive congestion of liver; I25.10 Atherosclerotic heart disease of native coronary artery without angina pectoris; E78.5 Hyperlipidemia, unspecified; E03.9 Hypothyroidism, unspecified; I50.811 Acute right heart failure; I34.1 Nonrheumatic mitral (valve) prolapse; Z79.01 Long term (current) use of anticoagulants; Z88.5 Allergy status to narcotic agent; I25.2 Old myocardial infarction; Z95.5 Presence of coronary angioplasty implant and graft; Z90.710 Acquired absence of both cervix and uterus; Z85.828 Personal history of other malignant neoplasm of skin
CPT/HCPCS: 36415; 71275; 74174; 80048; 80053; 83690; 83735; 83880; 84100; 84484; 85025; 93005; 94760; 96374; 96375; 97139; J1940; J2405; J3475; Q9967